=== PATIENT | male | born 1935 | race Caucasian/White ===

== ENCOUNTER 2016-12-18 10:22 | Emergency (ER) | payer MEDICARE, OTHER ==
[2014-02-24 06:30] VITALS: BMI 26.6
[~2016-12-18 10:22] MED LIST: BAYER CHEWABLE81 MG PO; CORDARONE200 MG PO; DEPAKOTE250 MG PO; LIPITOR80 MG PO; NITROQUICK0.4 MG SL; REMERON30 MG/UDTA PO
[2016-12-18 11:16] LABS: BASOPHILS 0.3 % (0.0-2.0); EOSINOPHILS 1.6 % (0-7); HEMATOCRIT 40.9 % (42.0-54.0); HEMOGLOBIN 13.5 g/dL (13.5-17.5); IMMATURE GRANULOCYTES 0.3 % (0-5); LYMPHOCYTES 27.4 % (15-50); MCH 30.4 pg (26.0-34.0); MCV 92.1 fL (80.0-100.0); MEAN PLATELET VOLUME 11.3 fL (7.4-10.4); MONOCYTES 6.8 % (2-11); NEUTROPHILS 63.6 % (40-80); PLATELET COUNT 247 10x3/uL (130-400); RBC 4.44 10x6/uL (4.20-6.10); RDW 14.3 % (11.5-14.5); WBC 11.6 10x3/uL (4.8-10.8)
== END 2016-12-18 13:48 | disposition home or self-care (01) ==
LOC: D.ER 10:22
PROVIDERS: Emergency Medicine
DX: S00.83XA Contusion of other part of head, initial encounter (principal); W19.XXXA Unspecified fall, initial encounter; Y93.89 Activity, other specified; Y92.89 Other specified places as the place of occurrence of the external cause; K59.00 Constipation, unspecified; S37.009A Unspecified injury of unspecified kidney, initial encounter; F31.9 Bipolar disorder, unspecified; M94.0 Chondrocostal junction syndrome [Tietze]; Z95.1 Presence of aortocoronary bypass graft; I10 Essential (primary) hypertension

== ENCOUNTER 2017-03-09 06:53 | Emergency (ER) | payer MEDICARE, OTHER ==
[2014-02-24 06:30] VITALS: BMI 26.6
== END 2017-03-09 08:54 | disposition home or self-care (01) ==
LOC: D.ER 06:53
DX: S16.1XXA Strain of muscle, fascia and tendon at neck level, initial encounter (principal); V59.9XXA Occupant (driver) (passenger) of pick-up truck or van injured in unspecified traffic accident, initial encounter; Y93.89 Activity, other specified; Y92.410 Unspecified street and highway as the place of occurrence of the external cause; F31.89 Other bipolar disorder

== ENCOUNTER 2017-03-15 12:59 | Emergency (ER) | payer MEDICARE, OTHER ==
[2014-02-24 06:30] VITALS: BMI 26.6
== END 2017-03-15 14:18 | disposition home or self-care (01) ==
LOC: D.ER 12:59
DX: S16.1XXA Strain of muscle, fascia and tendon at neck level, initial encounter (principal); V43.92XA Unspecified car occupant injured in collision with other type car in traffic accident, initial encounter; S60.212A Contusion of left wrist, initial encounter; S60.211A Contusion of right wrist, initial encounter; F17.200 Nicotine dependence, unspecified, uncomplicated

== ENCOUNTER 2017-04-08 10:09 | Emergency (ER) | payer MEDICARE, OTHER ==
[2014-02-24 06:30] VITALS: BMI 26.6
[2017-04-08 10:43] LABS: APPEARANCE CLEAR (CLEAR); BASOPHILS 0.6 % (0-2); BILIRUBIN NEGATIVE (NEGATIVE); COLOR YELLOW (YELLOW); EOSINOPHILS 3.4 % (0-7); GLUCOSE NEGATIVE (NEGATIVE); HEMATOCRIT 41.1 % (42.0-54.0); HEMOGLOBIN 13.3 g/dL (13.5-17.5); IMMATURE GRANULOCYTES 0.2 % (0-5); KETONE NEGATIVE (NEGATIVE); LEUKOCYTE ESTERASE NEGATIVE (NEGATIVE); LYMPHOCYTES 26.5 % (15-50); MCHC 32.4 g/dL (31.0-37.0); MCV 92.8 fL (80.0-100.0); MEAN PLATELET VOLUME 11.4 fL (7.4-10.4); MONOCYTES 7.3 % (2-11); NITRITE NEGATIVE (NEGATIVE); PLATELET COUNT 226 10x3/uL (130-400); PROTEIN NEGATIVE (NEGATIVE); RBC 4.43 10x6/uL (4.20-6.10); SPECIFIC GRAVITY 1.015 (1.005-1.020); UROBILINOGEN NORMAL (NORMAL); WBC 6.4 10x3/uL (4.8-10.8)
[2017-04-08 10:57] LABS: ALBUMIN 3.3 g/dL (3.4-5.0); ANION GAP 10.6 mmol/L (8-16); BILIRUBIN - TOTAL 0.41 mg/dL (0.2-1.3); CALCIUM 8.5 mg/dL (8.5-10.1); CREATININE - SERUM 1.4 mg/dL (0.6-1.3); POTASSIUM - SERUM 3.6 mmol/L (3.5-5.1); PROTEIN - SERUM 6.7 g/dL (6.4-8.2)
[2017-04-08 12:10] LABS: MAGNESIUM - SERUM 2.3 mg/dL (1.8-2.4); TROPONIN-I 0.017 ng/mL (0.000-0.060)
[2017-04-08 12:17] LABS: INR 0.94 (0.85-1.17); PROTIME 12.4 SECONDS (11.6-15.0)
== END 2017-04-08 15:01 | disposition home or self-care (01) ==
LOC: D.ER 10:09
PROVIDERS: Emergency Medicine
DX: M54.2 Cervicalgia (principal); R53.1 Weakness; N17.9 Acute kidney failure, unspecified; F31.89 Other bipolar disorder; I44.30 Unspecified atrioventricular block

== ENCOUNTER 2017-11-13 18:03 | Emergency (ER) | payer MEDICARE, OTHER ==
[2014-02-24 06:30] VITALS: BMI 26.6
== END 2017-11-13 19:39 | disposition home or self-care (01) ==
LOC: D.ER 18:03
DX: S40.212A Abrasion of left shoulder, initial encounter (principal); V43.52XA Car driver injured in collision with other type car in traffic accident, initial encounter; Y93.89 Activity, other specified; Y92.410 Unspecified street and highway as the place of occurrence of the external cause; I44.0 Atrioventricular block, first degree

== ENCOUNTER 2018-04-12 10:25 | Emergency (ER) | payer OTHER ==
[~2018-04-12] VITALS: Ht 175.3 cm; Wt 74.8 kg
[2018-04-12 10:29] VITALS: Ht 175.3 cm; Wt 74.8 kg
[2018-04-12] MEDS ORDERED: ELIQUIS2.5 MG PO (10:33)
[2018-04-12] MEDS ORDERED: METOPROLOL TART25 MG PO (10:34)
[2018-04-12] MEDS ORDERED: DEPAKOTE ER250 MG PO (10:34)
[2018-04-12 10:59] LABS: BASOPHILS 0.3 % (0-2); EOSINOPHILS 1.1 % (0-7); HEMATOCRIT 44.8 % (42.0-54.0); HEMOGLOBIN 15.2 g/dL (13.5-17.5); IMMATURE GRANULOCYTES 0.3 % (0-5); LYMPHOCYTES 26.7 % (15-50); MCH 29.7 pg (26.0-34.0); MCHC 33.9 g/dL (31.0-37.0); MCV 87.7 fL (80.0-100.0); MEAN PLATELET VOLUME 11.3 fL (7.4-10.4); MONOCYTES 8.9 % (2-11); NEUTROPHILS 62.7 % (40-80); PLATELET COUNT 204 10x3/uL (130-400); RBC 5.11 10x6/uL (4.20-6.10); WBC 11.8 10x3/uL (4.8-10.8)
[2018-04-12 11:16] LABS: ALBUMIN 3.5 g/dL (3.4-5.0); ALKALINE PHOSPHATASE 83 U/L (46-116); ALT (SGPT) 28 U/L (10-68); BILIRUBIN - TOTAL 0.63 mg/dL (0.2-1.3); CALC OSMOLALITY 283 mosm/kg (275-300); CALCIUM 8.9 mg/dL (8.5-10.1); CARBON DIOXIDE 25.1 mmol/L (21.0-32.0); CHLORIDE - SERUM 104 mmol/L (98-107); CREATININE - SERUM 1.6 mg/dL (0.6-1.3); GLUCOSE 106 mg/dL (74-106); POTASSIUM - SERUM 4.4 mmol/L (3.5-5.1); PROTEIN - SERUM 7.2 g/dL (6.4-8.2); SODIUM 138 mmol/L (136-145); UREA NITROGEN 35 mg/dL (7-18); eGFR NON AFRICAN AMERICAN 44 mL/min (90-120)
[2018-04-12 11:26] LABS: CKMB 2.3 U/L (0.0-3.6); CREATINE KINASE 59 UL (21-232); PRO BNP 3573 pg/mL (0-450)
[2018-04-12 11:28] LABS: TROPONIN-I < 0.017 ng/mL (0.000-0.060)
[2018-04-12 12:19] LABS: APPEARANCE CLEAR (CLEAR); BILIRUBIN NEGATIVE (NEGATIVE); COLOR DK YELLOW (YELLOW); GLUCOSE NEGATIVE (NEGATIVE); KETONE NEGATIVE (NEGATIVE); NITRITE NEGATIVE (NEGATIVE); PROTEIN NEGATIVE (NEGATIVE); UROBILINOGEN NORMAL (NORMAL)
[2018-04-12 12:22] LABS: UDS - AMPHET NEGATIVE QUAL (NEGATIVE); UDS - BARB NEGATIVE QUAL (NEGATIVE); UDS - BENZO NEGATIVE QUAL (NEGATIVE); UDS - COCAINE NEGATIVE QUAL (NEGATIVE); UDS - OPIATE NEGATIVE QUAL (NEGATIVE); UDS - PCP NEGATIVE QUAL (NEGATIVE); UDS - THC NEGATIVE QUAL (NEGATIVE)
[2018-04-12 20:34] VITALS: BP 134/72
== END 2018-04-12 20:35 | disposition other institution (70) ==
LOC: D.ER 10:25
PROVIDERS: Family Medicine
DX: I50.9 Heart failure, unspecified (principal); F31.9 Bipolar disorder, unspecified; N28.9 Disorder of kidney and ureter, unspecified; J44.9 Chronic obstructive pulmonary disease, unspecified; F17.200 Nicotine dependence, unspecified, uncomplicated

== ENCOUNTER 2019-07-10 15:17 | Inpatient (IN) | payer MEDICARE ==
[~2019-07-10] VITALS: Ht 175.3 cm; Wt 84.4 kg
--- NOTE | ~2019-07-10 | HEMODYNAMI ---
PATIENT:XIN WADE MEDICAL RECORD: [id number] : 35 [id number] ADMISSION DATE: 07/10/19 Generatedon:07/12/201910:06 Patient name: XIN WADE Patient #: [id number] SSN: [id number] : 1935 Date of study: 07/12/2019 Page: Of Hemodynamic Procedure Report Patient Data Patient Demographics Procedure consent was obtained First Name: XIN Gender: Male Last Name: MAURO : 1935 [facility] Initial: E Age: 84 year(s) Patient #: [id number] Race: SSN: [id number] Additional ID: [id number] Contact details Address: [address] [place] [address] State: [place] City: [place] Zip code: [address] Past Medical History Allergies: No known allergies Admission Admission Data Admission Date: 07/10/2019 Admission Time: 19:08 Room #: [facility] Insurance Payor: Medicare [facility] #: [id number] Height (in.): 68.9 BSA: 2.02 (m2) Height (cm.): 175 BMI: 28.08 (kg/m2) Weight (lbs.): 189.6 Weight (kg.): 86 Lab Results Lab Result Date: 07/12/2019 Lab Result Time: 0:00 Biochemistry Name Units Result Min Max BUN mg/dl 41 --(----)-* 7 18 Creatinine mg/dl 1.5 --(----)-* 0.6 1.3 eGFR ml/min 47 *-(----)-- 90 120 NONAFRICAN CBC Name Units Result Min Max Hematocrit % 35.6 *-(----)-- 42 54 Hemoglobin g/dl 10.9 *-(----)-- 13.5 17.5 Procedure Procedure Types Cath Procedure Diagnostic Procedure LHC LHC w/Coronaries w/Grafts Sedation Charges Moderate Sedation up to 15 minutes PCI Procedure Coronary Stent Coronary Stent Initial PTCA PTCA Initial Procedure Description Procedure Date Procedure Date: 07/12/2019 Procedure Start Time: 9:28 Procedure End Time: 10:03 Procedure Staff Name Function Israel Farley MD Performing Physician Ruby Deal RT Monitor Cecille Jewell RT Monitor Spike Maynard RT Scrub Maryjo Jones RT Scrub Markos Min RN Nurse Benjamin Pugh RN Nurse Procedure Data Cath Procedure Fluoroscopy Diagnostic fluoroscopy Total fluoroscopy Time: 6.4 time: 6.4 min min Diagnostic fluoroscopy Total fluoroscopy dose: dose: 1135 mGy 1135 mGy Contrast Material Contrast Material Type Amount (ml) Isovue 300 139 Entry Location Entry Primary Successful Side Size Upsize Upsize Entry Closure Succes sful Closure Location (Fr) 1 (Fr) 2 (Fr) Remarks Device Remarks Femoral Right 5 Fr 6 Fr Exoseal artery Short Estimated blood loss: 10 ml Diagnostic catheters Device Type Used For End Catheter Placement MULTIPACK JL 4.0 5Fr Procedure catheter DIAGNOSTIC AR MOD 5Fr Procedure Catheter ([id number]) MULTIPACK Pigtail 5 Fr Procedure catheter DIAGNOSTIC IM 5Fr Procedure catheter ([id number]) Procedure Complications No complications Procedure Medications Medication Administration Route Dosage Oxygen NC 2 l/min Lidocaine 2% added to field 20 Heparin Flush Bag added to field 2 bags (1000units/500ml NS) 0.9% NaCl I.V. 100 ml/hr Fentanyl I.V. 50 mcg Versed I.V. 1 mg Heparin Bolus I.V. 8500 units Plavix P.O. 600 mg Hemodynamics Rest BSA: 2.02 (m2) HGB: 10.9 (g/dl) O2 Consumption: Estimated: 221.53 (ml/min) O2 Co nsumption indexed: Estimated:109.67 (ml/min/m) Heart Rate: 59 (bpm) Pressure Samples Time Site Value (mmHg) Purpose Heart Use Rate(bpm) 9:38 LV 90/4,6 Snapshot 58 Gradients Valve Time Site Site Mean SEP/DFP Peak To Heart Use 1 2 (mmHg) (sec/min) Peak Rate (mmHg) (bpm) Aortic 9:39 LV AO 70 Snapshots Pre Cath Intra NCS Post Cath Vital Signs Time Heart Resp SPO2 etCO2 NIBP (mmHg) Rhythm Pain Sedation Rate (ipm) (%) (mmHg) Status Level (bpm) 8:59:10 64 16 99 0 130/75(106) NSR 0 (11) 10(A) , No pain 9:04:07 71 16 100 0 113/64(98) NSR 0 (11) 10(A) , No pain 9:09:14 64 16 98 32.2 110/76(85) NSR 0 (11) 10(A) , No pain 9:13:28 66 16 98 0 110/59(92) NSR 0 (11) 10(A) , No pain 9:17:40 59 16 92 29.2 104/66(89) NSR 0 (11) 10(A) , No pain 9:21:48 73 16 95 14.2 107/71(93) NSR 0 (11) 10(A) , No pain 9:25:56 65 17 99 27.7 113/62(82) NSR 0 (11) 10(A) , No pain 9:30:10 64 12 100 38.2 108/62(93) NSR 0 (11) 10(A) , No pain 9:34:22 79 11 92 0 107/62(98) NSR 0 (11) 10(A) , No pain 9:38:36 75 18 94 23.9 109/55(91) NSR 0 (11) 10(A) , No pain 9:42:38 74 13 95 35.9 105/72(96) NSR 0 (11) 10(A) , No pain 9:46:47 55 18 97 36.7 103/62(86) NSR 0 (11) 10(A) , No pain 9:50:59 76 18 97 29.2 103/56(84) NSR 0 (11) 10(A) , No pain 9:55:07 68 13 99 38.2 106/69(92) NSR 0 (11) 10(A) , No pain 9:59:15 66 11 99 23.2 118/70(86) NSR 0 (11) 10(A) , No pain 10:04:20 53 13 99 41.2 111/62(90) NSR 0 (11) 10(A) , No pain Medications Time Medication Route Dose Verified Delivered Reason Notes Effectiveness by by 9:03:09 Oxygen NC 2 Israel Sandhu Per physician l/min Miguelito Oconnor RN 9:03:21 Lidocaine 2% added 20ml Israel Edson for local to vial Miguelito Oconnor RN anesthetic field 9:03:33 Heparin Flush added 2 Israel Edson used for Bag to bags Miguelito Oconnor pilling machine operator (1000units/500ml field NS) 9:03:46 0.9% NaCl I.V. 100 Israel Edson Per physician ml/hr Miguelito Oconnor RN 9:27:53 Fentanyl I.V. 50 Israel Edson for sedation mcg Miguelito Oconnor RN 9:28:02 Versed I.V. 1 mg Israel Edson for sedation Miguelito Oconnor RN 9:47:35 Heparin Bolus I.V. 8,500 Israel Benjamin for units Miguelito Pugh anticoagulation RN 9:58:39 Plavix P.O. 600 Israel Benjamin for mg Miguelito Pugh antiplatelet RN therapy Procedure Log Time Note 8:43:08 Informed consent obtained and on chart 8:43:40 Procedure Status Urgent Heart Cath (IP). 8:43:41 Time tracking: Regular hours (M-F 7:00 - 5:00) 8:43:45 Plan of Care:Hemodynamics will remain stable., Cardiac rhythm will remain stable., Comfort level will be maintained., Respiratory function will remain adequate., Patient/ family verbilizes understanding of procedure., Procedure tolerated without complication., Recovers from procedure without complications.. 8:43:46 Spike Maynard RT(R) sent for patient. Start room use. 8:44:23 H&P Date Dictated: 07/12/2019 Within 30 days and on chart.. 8:44:32 Patient allergic to No known allergies 8:44:59 Lab Result : BUN 41 mg/dl 8:45:00 Lab Result : Creatinine 1.5 mg/dl 8:45:00 Lab Result : eGFR NONAFRICAN 47 ml/min 8:45:00 Lab Result : Hemoglobin 10.9 g/dl 8:45:00 Lab Result : Hematocrit 35.6 % 8:46:32 Risk of Mortality: .9 8:46:36 Risk of blood transfusion: 4.7 8:46:39 Risk of LUBNA: 4.5 8:49:18 Patient Weight : 189.6 lbs 8:49:22 Patient Height : 68.9 inches 8:49:32 Insurance Payor : Medicare 8:52:13 Patient received from Med II to CCL 1 Alert and oriented. Tansferred to table in Supine position. 8:52:14 Warm blankets applied, and davis hugger turned on for patient comfort. 8:52:15 Correct patient and procedure confirmed by team. 8:52:16 ECG and BP/O2 sat monitors applied to patient. 8:52:24 Pre-procedure instructions explained to patient. 8:52:24 Pre-op teaching completed and patient verbalized understanding. 8:52:29 Family unavailable. 8:52:32 Patient NPO since Midnight. 8:52:41 Is the patient allergic to Iodine/contrast media? No. 8:52:43 Was the patient premedicated? N/A 8:52:45 Is patient on blood thinner?No 8:52:47 Patient diabetic? No. 8:52:50 If diabetic: On Metformin? N/A 8:53:03 Previous problem with sedation/anesthesia? No ? 8:53:04 Snore? No 8:53:06 Sleep apnea? No 8:53:09 Deviated septum? No 8:53:11 Opens mouth fully? Yes 8:53:12 Sticks out tongue? Yes 8:53:15 Airway obstruction? No ? 8:53:17 Dentures? No ? 8:53:24 Pre procedure: right dorsailis pedis pulse 2+ Normal; easily identifiable; not easily obliterated 8:58:07 Vital chart was started 8:58:10 Baseline sample Acquired. 8:58:15 Rhythm: atrial fibrillation 8:58:17 Full Disclosure recording started 8:58:28 Patient pain scale 0/10 ?. 8:58:35 IV patent on arrival in left hand with 0.9% NaCl at KVO. 8:58:38 Lab results completed and on chart. 8:58:58 Stress Test: no; N/A ? 8:59:04 Right groin area was prepped with chlora-prep and draped in sterile fashion 8:59:05 Alarms reviewed by R. N. 8:59:05 Sharps counted by scrub and verified by R.N. 8:59:13 ACC Patient presents with Stable Angina CCS Anginal Class 3--Marked limitation of physical activity, angina occurs with ordinary activity.. 8:59:19 Use device set Femoral Dx 8:59:20 ACIST Syringe (51853) opened to sterile field. 8:59:21 Bag Decanter (2002S) opened to sterile field. 8:59:22 ACIST Hand Control (14579) opened to sterile field. 8:59:22 ACIST Manifold (46131) opened to sterile field. 8:59:23 Tegaderm 4 x 4 (1626W) opened to sterile field. 8:59:25 Medline Cath Pack ([id number]) opened to sterile field. 8:59:25 DIAGNOSTIC Multipack 5Fr catheter set (BP5225) opened to sterile field. 8:59:26 SHEATH 5FR Crane (MNG619) opened to sterile field. 8:59:27 EMERALD Guide Wire (650-014) opened to sterile field. 9:03:09 Oxygen 2 l/min NC was administered by Edson Oconnor RN; Per physician; Verbal order read back and verified. 9:03:21 Lidocaine 2% 20ml vial added to field was administered by Edson Oconnor RN; for local anesthetic; Verbal order read back and verified. 9:03:33 Heparin Flush Bag (1000units/500ml NS) 2 bags added to field was administered by Edson Oconnor RN; used for procedure; Verbal order read back and verified. 9:03:46 0.9% NaCl 100 ml/hr I.V. was administered by Edson Oconnor RN; Per physician; Verbal order read back and verified. 9:25:59 --------ALL STOP TIME OUT------ 9:26:01 Final Timeout: patient, procedure, and site verified with staff and physician. All members of the team are in agreement. 9:26:04 Right groin site verified by team. 9:26:09 Fire Safety Assessment: A--An alcohol-based skin anteseptic being used preoperatively., C--Open oxygen or nitrous oxide is being used., D--An ESU, laser, or fiber-optic light is being used. 9:27:16 Physical assessment completed. ASA score P 2 - A patient with mild systemic disease as per Israel Farley MD. 9:27:25 2) 60-89 Mildly reduced kidney function, and other findings (as for stage 1) point to kidney disease. 9:27:29 Maximum allowable contrast dose (3.7 X eGFR X 0.75)125 ml. 9:27:34 Sedation plan: IV Moderate Sedation Medication:Versed, Fentanyl 9:27:42 Procedure started. 9:27:53 Fentanyl 50 mcg I.V. was administered by Edson Oconnor RN; for sedation; Verbal order read back and verified. 9:28:02 Versed 1 mg I.V. was administered by Edson Oconnor RN; for sedation; Verbal order read back and verified. 9:28:22 Local anesthetic to right femoral artery with Lidocaine 2% by Israel Farley MD.INITIAL ACCESS ONLY 9:30:50 A 5 Fr sheath was inserted into the Right Femoral artery 9:31:18 A MULTIPACK JL 4.0 5Fr catheter was advanced over the wire and used for Procedure. 9:32:12 LCA angiography performed. 9:33:47 Catheter exchanged over wire. 9:34:39 A DIAGNOSTIC AR MOD 5Fr Catheter (347308U) was advanced over the wire and used for Procedure. 9:35:00 RCA angiography performed. 9:37:30 SVG to Circ occluded. 9:37:32 Catheter exchanged over wire. 9:37:40 A MULTIPACK Pigtail 5 Fr catheter was advanced over the wire and used for Procedure. 9:37:49 LV gram done using REAL 9:37:52 Injector settings: Ml/sec: 10, Volume: 20, 9:38:24 LV hemodynamics recorded. 9:39:10 EF : 30 % 9:39:36 Catheter exchanged over wire. 9:39:41 A DIAGNOSTIC IM 5Fr catheter ([id number]) was advanced over the wire and used for Procedure. 9:41:30 JORGE angiography performed. 9:42:11 Catheter exchanged over wire. 9:42:43 Proceeding to intervention. 9:43:42 INFLATOR Merit BasixCompak (PV3060) opened to sterile field. 9:43:43 SHEATH 6FR Crane (IFG986) opened to sterile field. 9:43:44 TUBING High Pressure Extension Tubing (Miguelito) ([id number]) opened to sterile field. 9:43:46 BMW 300cm Straight [place]ingo 2 wire (8339476) opened to sterile field. 9:45:03 Sheath upsized to a 6 Fr Short. 9:45:05 GUIDE 6FR XBLAD 3.5 catheter ([id number]) opened to sterile field. 9:45:08 6 Fr XBLAD 3.5 guide catheter was inserted over the wire 9:45:45 BMW 300 wire advanced. 9:47:35 Heparin Bolus 8,500 units I.V. was administered by Benjamin Pugh RN; for anticoagulation; Verbal order read back and verified. 9:47:36 Wire advanced across lesion. 9:47:46 Pre PCI Site: Unga mCirc has 90% stenosis. 9:49:03 Inflate balloon Inflation number: 1 A EMERGE OTW 2.5 x 15 balloon ([id number]) was prepped and advanced across the Mid CX , then inflated to 16 SUSAN for 0:00 (min:sec) . 9:49:50 Balloon removed over the wire. 9:50:21 Pre PCI Site: Unga LMCA has 90% stenosis. 9:52:31 Place stent Inflation Number: 1 A COBRA RX 3.0 X 12 Stent was prepped and advanced across the LMCA . The stent was deployed at 16 SUSAN for 0:00 (min:sec) . 9:53:08 Stent catheter was removed intact over wire. 9:53:10 Wire removed. 9:53:12 Guide catheter removed. 9:53:42 Post PCI Site: Unga LMCA has 0% stenosis. 9:53:51 Post PCI Site: Unga mCirc has 0% stenosis. 9:54:03 EXOSEAL 6Fr (EX600) opened to sterile field. 9:55:03 Sheath removed intact; hemostasis achieved with Exoseal to the Right Femoral artery. 9:55:11 Procedure ended.(Physican Out) 9:55:31 Dose Area Product 62830 mGy/cm. 9:55:40 Contrast amount:Isovue 300 139ml. 9:55:47 Maximum allowable dose exceeded? Yes. 9:55:49 Sharps counted by scrub and verified by R.N. 9:56:22 Post right femoral artery:stable, soft, clean and dry 9:56:30 Fluoroscopy time 06.40 minutes. 9:56:33 Flurop Dose total: 1135 9:56:33 Fluoroscopy dose: 1135 mGy 9:56:40 Post Procedure Pulses reassessed and unchanged 9:56:45 Post procedure: right dorsailis pedis pulse 2+ Normal; easily identifiable; not easily obliterated. 9:56:49 Post-procedure physical assessment completed. ASA score P 2 - A patient with mild systemic disease as per Israel Farley MD. 9:56:53 Post procedure rhythm: unchanged. 9:56:57 Estimated blood loss: 10 ml 9:56:59 Post procedure instruction explained to patient.Patient verbalizes understanding. 9:57:00 Patient needs reinforcement of post procedure teaching. 9:58:12 Procedure type changed to Cath procedure, Diagnostic procedure, LHC, LHC w/Coronaries w/Grafts, Sedation Charges, Moderate Sedation up to 15 minutes, PCI procedure, Coronary Stent, Coronary Stent Initial, PTCA, PTCA Initial 9:58:39 Plavix 600 mg P.O. was administered by Benjamin Pugh RN; for antiplatelet therapy; Verbal order read back and verified. 10:02:32 ACT drawn and resulted at 361 seconds. (normal therapeutic range 180-240 seconds). 10:02:37 Procedure and supply charges have been captured, reviewed, submitted and are correct. 10:02:44 Procedure Complication : No complications 10:02:46 Vital chart was stopped 10:02:49 [facility] Findings: MVD- PCI performed (see procedure note) 10:02:55 Operative report dictated upon procedure completion. 10:02:56 See physician's report for complete and final results. 10:02:59 Report given to [place] [facility]. 10:03:03 Patient transfered to [place] [facility] with Bed. 10:03:06 Procedure ended. 10:03:06 Full Disclosure recording stopped 10:03:17 ACC-PCI Only Patient was given prescriptions, or instructed by Israel Farley MD to start/continue the following medications upon discharge: Plavix 10:03:19 End room use (Document Last) Intervention Summary Intervention Notes Time ActionType Lesion and Equipment Action# Pressure Duration Attributes Used 9:49:03 Inflate Mid CX EMERGE OTW 1 16 00:00 balloon 2.5 x 15 balloon ([id number]) 9:52:31 Place stent LMCA COBRA RX 3.0 1 16 00:00 X 12 Stent Device Usage Item Name Manufacture Quantity Catalog Number [facility] Minimal Lot# / Charge Number Stock Stock Serial# Code ACIST Syringe Acist 1 52734 390135 775508 510100 20 (62804) Medical Systems Inc Bag Decanter Microtek 1 2001S 407878 41499 460866 5 (2001S) Medical Inc. ACIST Hand Acist 1 39657 513606 974566 306153 5 Control Medical (72254) Systems Inc ACIST Manifold Acist 1 89493 932255 178227 024462 5 (38325) Medical Systems Inc Tegaderm 4 x 4 3M 1 1626W 872735 044226 676604 5 (1626W) Medline Cath Medline 1 [id number] 485829 54962 364003 5 Pack ([id number]) DIAGNOSTIC Cardinal 1 EG5781 137392 85870 500690 30 Multipack 5Fr Health catheter set (PS9932) SHEATH 5FR Terumo 1 NUB385 736153 474443 533861 5 Crane (AHD160) EMERALD Guide Cardinal 1 502-455 544745 822378 935522 5 Wire (502-455) Health MULTIPACK JL Cardinal 1 157936 5 4.0 5Fr Health catheter DIAGNOSTIC AR Cardinal 1 [id number] 102067 380871 367815 15 MOD 5Fr Health Catheter (825855A) MULTIPACK Cardinal 1 345315 5 Pigtail 5 Fr Health catheter DIAGNOSTIC IM Cardinal 1 228706P 928790 144080 970846 5 5Fr catheter Health (698907R) INFLATOR Merit Merit 1 EY3991 575997 779779 046663 15 BasixCompak Medical (SJ0264) SHEATH 6FR Terumo 1 IVL909 057124 881641 482308 40 Crane (YLG299) TUBING High Merit 1 [id number] 457385 13809 006862 10 Pressure Medical Extension Tubing (Farley) (ND0334U) BMW 300cm Emmanuel 1 0143284 640696 119433 687314 5 Straight Vascular Wingo 2 wire (3970414) EMERGE OTW 2.5 [place] 1 [id number] 245001 018227 408780 5 [id number] x 15 balloon Scientific ([id number]) COBRA RX 3.0 X Celonova 1 795633 613024183 188685 7 7 [id number] 12 stent Biosciences () EXOSEAL 6Fr Cardinal 1 EX600 857734 834586 464740 10 (EX600) Health GUIDE 6FR Cardinal 1 13271281 197902 261133 740456 10 XBLAD 3.5 Health catheter (29560950) Signature Audit [place] Stage Time Signature Unsigned Intra-Procedure 07/12/2019 Ruby Deal 10:05:46 AM RT(R) Intra-Procedure 07/12/2019 Benjamin 10:06:19 AM Keaton HENDRICKS Intra-Procedure 07/12/2019 Israel Farley MD 10:06:[address] [address]
[~2019-07-10 15:17] MED LIST changes: +DEPAKOTE ER250 MG PO; +ELIQUIS2.5 MG PO; +METOPROLOL TART25 MG PO
[2019-07-10 15:43] LABS: BASOPHILS 0.2 % (0-2); EOSINOPHILS 4.2 % (0-7); HEMATOCRIT 37.6 % (42.0-54.0); HEMOGLOBIN 11.6 g/dL (13.5-17.5); IMMATURE GRANULOCYTES 0.2 % (0-5); LYMPHOCYTES 35.3 % (15-50); MCH 29.4 pg (26.0-34.0); MCHC 30.9 g/dL (31.0-37.0); MCV 95.2 fL (80.0-100.0); MEAN PLATELET VOLUME 11.2 fL (7.4-10.4); MONOCYTES 10.2 % (2-11); NEUTROPHILS 49.9 % (40-80); PLATELET COUNT 182 10x3/uL (130-400); RBC 3.95 10x6/uL (4.20-6.10); RDW 13.5 % (11.5-14.5); WBC 9.9 10x3/uL (4.8-10.8)
[2019-07-10 15:55] LABS: APTT 29.1 SECONDS (22.8-39.4); INR 1.15 (0.85-1.17); PROTIME 14.2 SECONDS (11.6-15.0)
[2019-07-10 15:57] LABS: CALC OSMOLALITY 295 mosm/kg (275-300); CALCIUM 8.4 mg/dL (8.5-10.1); CARBON DIOXIDE 29.3 mmol/L (21.0-32.0); CHLORIDE - SERUM 110 mmol/L (98-107); CREATININE - SERUM 1.7 mg/dL (0.6-1.3); GLUCOSE 104 mg/dL (74-106); POTASSIUM - SERUM 5.3 mmol/L (3.5-5.1); SODIUM 144 mmol/L (136-145); UREA NITROGEN 38 mg/dL (7-18); eGFR NON AFRICAN AMERICAN 41 mL/min (90-120)
[2019-07-10 16:01] VITALS: BP 124/75
[2019-07-10 16:13] LABS: ALBUMIN 3.2 g/dL (3.4-5.0); ALKALINE PHOSPHATASE 72 U/L (46-116); ALT (SGPT) 19 U/L (10-68); BILIRUBIN - TOTAL 0.25 mg/dL (0.2-1.3); CKMB 1.2 U/L (0.0-3.6); CREATINE KINASE 66 UL (21-232); MAGNESIUM - SERUM 2.3 mg/dL (1.8-2.4); PROTEIN - SERUM 6.4 g/dL (6.4-8.2); TROPONIN-I 0.031 ng/mL (0.000-0.060)
[2019-07-10 16:30] VITALS: BP 124/71
[2019-07-10 17:01] VITALS: BP 139/101
--- NOTE | 2019-07-10 17:26 | NUR ---
UP TO SIDE OF BED TO VOID. MEDS GIVEN PER ORDERS.
--- NOTE | 2019-07-10 17:36 | NUR ---
[facility] CALLED TO CHECK ON PT, STATES THEY WILL PAY FOR TRANSFER BACK TO [facility]. STATES THEY DO NOT HAVE TRANSPORTATION ON THE WEEKENDS.
[2019-07-10 17:44] VITALS: BP 109/61
--- NOTE | 2019-07-10 19:32 | NUR ---
PT RECEIVED VIA WHEELCHAIR FROM ER, PT IS A&O, UP WITH ASSIST, IV-18G.-LAC-SL, CALL [facility]-TO GET LIST OF MEDS FAXED TO ME, SPOKE WITH BETH, PT ASKING FOR A SANDWICH AND DRINK,(PROVIDED), DENIES ANY OTHER NEEDS AT THIS TIME, BED IS LOW, SRX2, CALL LIGHT IN REACH, WILL CONTINUE PLAN OF CARE
[2019-07-10] MEDS ORDERED: LIPITOR80 MG PO (22:45)
[2019-07-10] MEDS ORDERED: FLOMAX0.4 MG PO (22:46)
[2019-07-10] MEDS ORDERED: LISINOPRIL5 MG PO (22:47)
[2019-07-10] MEDS ORDERED: TYLENOL ARTHRI650 MG PO (22:51)
[2019-07-10] MEDS ORDERED: LASIX40 MG PO (22:52)
[2019-07-10] MEDS ORDERED: MELATONIN 3 MG1 TAB PO (22:52)
[2019-07-10] MEDS ORDERED: REMERON30 MG (22:56)
[2019-07-10 22:58] LABS: CKMB 1.6 U/L (0.0-3.6); CREATINE KINASE 59 UL (21-232); TROPONIN-I 0.024 ng/mL (0.000-0.060)
[2019-07-11] VITALS (7 sets, daily range): BP systolic 89–123; BP diastolic 49–81
[2019-07-11 01:36] LABS: CKMB 1.1 U/L (0.0-3.6); CREATINE KINASE 57 UL (21-232); TROPONIN-I < 0.017 ng/mL (0.000-0.060)
[2019-07-11 05:54] LABS: CKMB 1.6 U/L (0.0-3.6); CREATINE KINASE 71 UL (21-232); TROPONIN-I 0.031 ng/mL (0.000-0.060)
--- NOTE | 2019-07-11 07:03 | NUR ---
PT CALL LIGHT ON, WENT TO ANSWER CALL LIGHT, PT NEEDED ASSISTANCE TO GO TO THE BATHROOM. HELPED PT TO BATHROOM AND BACK TO BED, SCDS ON BILAT, CALL LIGHT IN REACH,BEDSIDE RAILS X2, NAD NOTED, WILL CONTINUE TO MONITOR.
[2019-07-11 07:38] LABS: BASOPHILS 0.2 % (0-2); EOSINOPHILS 2.7 % (0-7); HEMATOCRIT 35.6 % (42.0-54.0); HEMOGLOBIN 10.9 g/dL (13.5-17.5); IMMATURE GRANULOCYTES 0.2 % (0-5); LYMPHOCYTES 25.1 % (15-50); MCH 29.4 pg (26.0-34.0); MCHC 30.6 g/dL (31.0-37.0); MEAN PLATELET VOLUME 12.1 fL (7.4-10.4); MONOCYTES 9.6 % (2-11); NEUTROPHILS 62.2 % (40-80); PLATELET COUNT 191 10x3/uL (130-400); RBC 3.71 10x6/uL (4.20-6.10); RDW 13.7 % (11.5-14.5)
[2019-07-11 07:44] LABS: WBC 12.5 10x3/uL (4.8-10.8)
[2019-07-11 07:50] LABS: ANION GAP 15.3 mmol/L (8-16); CALCIUM 8.3 mg/dL (8.5-10.1); CHOL - HDL RATIO 3.1 ratio (2.3-4.9); CREATININE - SERUM 1.5 mg/dL (0.6-1.3); LDL-HDL RATIO 1.6 ratio (1.5-3.5); POTASSIUM - SERUM 5.3 mmol/L (3.5-5.1)
--- NOTE | 2019-07-11 13:40 | NUR ---
TALKED TO DR. SMITH, AND INFORMED HIM THAT PT KEEPS HAVING 2-3SEC PAUSES. PT IS ASYMPTOMATIC. PER DR. SMITH CONTINUE MONITORING PT.
[2019-07-11] MEDS ORDERED: DEPAKOTE500 MG PO (14:14)
--- NOTE | 2019-07-11 14:28 | NUR ---
PT RESTING COMFORTABLY IN BED, GAVE PROTONIX AND DEPAKOTE ORDERED. PT DENIES ANY NEEDS AT THIS TIME.CALL LIGHT IN REACH, NAD NOTED, WILL CONTINUE TO MONITOR.
[2019-07-11 14:58] LABS: % SATURATION 22 % (15-55); IRON 48 ug/dl (35-150); TOTAL IRON BIND CAPACITY 212 ug/dl (260-445); UNSAT IRON BIND CAPACITY 164 ug/dl (150-375)
--- NOTE | 2019-07-11 16:05 | NUR ---
HELPED PT TO BATHROOM AND BACK TO BED. URINE SAMPLE COLLECTED AND TAKEN TO LAB. PT DENIES ANY OTHER NEEDS AT THIS TIME. CALL LIGHT IN REACH, NAD NOTED, WILL CONTINUE TO MONITOR.
[2019-07-11 16:23] LABS: APPEARANCE CLEAR (CLEAR); BILIRUBIN NEGATIVE (NEGATIVE); COLOR YELLOW (YELLOW); GLUCOSE NEGATIVE (NEGATIVE); KETONE NEGATIVE (NEGATIVE); NITRITE NEGATIVE (NEGATIVE); PROTEIN NEGATIVE (NEGATIVE); SPECIFIC GRAVITY 1.015 (1.005-1.020); UROBILINOGEN NORMAL (NORMAL)
--- NOTE | 2019-07-11 16:34 | NUR ---
BELT BUILDER NOTIFIED NURSE OF LOW BP, REMOVED NITRO PATCH AND WILL RECHECK BP IN 30MIN. PT STATES THAT HE FEELS GOOD DENIES ANY CHEST PAIN OR DISCOMFORTS. CALL LIGHT IN REACH, NAD NOTED,W ILL CONTINUE TO MONITOR.
--- NOTE | 2019-07-11 17:26 | NUR ---
RECHECKED PT BP NOW 103/58.
--- NOTE | 2019-07-11 19:15 | NUR ---
RECEIVED REPORT, WILL ASSUME CARE OF PT, SLEEPING NO DISTRESS NOTICED, BED IS LOW, SRX2, CALL LIGHT IN REACH, WILL CONTINUE PLAN OF CARE
--- NOTE | 2019-07-12 03:52 | NUR ---
I have reviewed this patient and I concur with the Shift Assessment completed by the Licensed Practical Nurse today this shift.
[2019-07-12 04:00] VITALS: BP 100/60
[2019-07-12 05:40] LABS: BASOPHILS 0.3 % (0-2); EOSINOPHILS 4.7 % (0-7); HEMATOCRIT 37.8 % (42.0-54.0); HEMOGLOBIN 11.4 g/dL (13.5-17.5); IMMATURE GRANULOCYTES 0.3 % (0-5); LYMPHOCYTES 30.7 % (15-50); MCH 28.8 pg (26.0-34.0); MCHC 30.2 g/dL (31.0-37.0); MCV 95.5 fL (80.0-100.0); MONOCYTES 10.7 % (2-11); NEUTROPHILS 53.3 % (40-80); PLATELET COUNT 188 10x3/uL (130-400); RBC 3.96 10x6/uL (4.20-6.10); RDW 13.6 % (11.5-14.5)
[2019-07-12 05:48] LABS: WBC 9.3 10x3/uL (4.8-10.8)
[2019-07-12 06:30] LABS: CALCIUM 8.1 mg/dL (8.5-10.1); CARBON DIOXIDE 25.3 mmol/L (21.0-32.0); CREATININE - SERUM 1.6 mg/dL (0.6-1.3); POTASSIUM - SERUM 5.3 mmol/L (3.5-5.1)
--- NOTE | 2019-07-12 07:55 | NUR ---
ALERT AND ORIENTED. TELEMERTY SHOWS AFIB 57.02 AT 2 L/M PER NC. PT IS A DNR. LEFT FA SL PATENT. UP WITH ASSIST. WILL MONITOR SR UP WITH CALL LIGHT IN REACH
[2019-07-12 09:00] VITALS: BP 110/58
--- NOTE | 2019-07-12 10:36 | NUR ---
BACK FROM DISTRIBUTION CENTER MANAGER. SLIGHTLY SEDATED. RIGHT GROIN SOFT WITH DRSG DRY AND INTACT. PPP. V/S STABLE TELEMERTY SHOWS AFIB AT 76. SR UP WITH CALL LIGHT IN REACH
[2019-07-12 11:46] VITALS: BP 121/64
--- NOTE | 2019-07-12 12:10 | NUR ---
I have reviewed this patient and I concur with the Shift Assessment completed by the Licensed Practical Nurse today this shift.
[2019-07-12 14:46] VITALS: Ht 175.3 cm; Wt 84.4 kg
[2019-07-12 16:16] VITALS: BP 113/77
[2019-07-12 20:00] VITALS: BP 108/56
[2019-07-13] VITALS: BP 98/55
--- NOTE | 2019-07-13 00:36 | NUR ---
RESTING WITH EYES CLOSED, RESPERATIONS EVEN, NO S/S DISTRESS NOTED.
[2019-07-13 04:25] VITALS: BP 114/57
[2019-07-13 05:47] LABS: HEMATOCRIT 36.5 % (42.0-54.0); HEMOGLOBIN 11.3 g/dL (13.5-17.5); MCH 29.5 pg (26.0-34.0); MCV 95.3 fL (80.0-100.0); MEAN PLATELET VOLUME 12.1 fL (7.4-10.4); PLATELET COUNT 188 10x3/uL (130-400); RBC 3.83 10x6/uL (4.20-6.10); RDW 13.6 % (11.5-14.5); WBC 9.6 10x3/uL (4.8-10.8)
[2019-07-13 05:49] LABS: ANION GAP 12.1 mmol/L (8-16); CALCIUM 8.3 mg/dL (8.5-10.1); CARBON DIOXIDE 24.5 mmol/L (21.0-32.0); CREATININE - SERUM 1.7 mg/dL (0.6-1.3); POTASSIUM - SERUM 5.6 mmol/L (3.5-5.1)
--- NOTE | 2019-07-13 07:31 | NUR ---
ALERT AND ORIENTED. PT HAVING GREATER THAN 2 SEC PAUSES THROUGH THE NIGHT AND A 3 SEC PAUSE THIS MORNING. I CALLED DR. CARRERO AND REPORTED IT. ORDERS TO HOLD LOPRESSOR RECIEVED. WILL CONTINUE TO MONITOR. PT IS ASYPTOMATIC. SL TO LEFT FA, PATENT. 02 AT 2 L/M PER NC. WILL MONITOR
[2019-07-13 08:00] VITALS: BP 130/83
[2019-07-13 08:41] LABS: EOSINOPHILS 1 % (0-7); LYMPHOCYTES 22 % (15-50); MONOCYTES 12 % (2-11); NEUTROPHILS 65 % (40-80); PLATELET ESTIMATE NORMAL
[2019-07-13 08:42] LABS: ACANTHOCYTES OCC; CRENATED CELLS 2+
[2019-07-13 12:00] VITALS: BP 119/56
[2019-07-13] MEDS ORDERED: PLAVIX75 MG PO (12:06)
--- NOTE | 2019-07-13 12:44 | NUR ---
I have reviewed this patient and I concur with the Shift Assessment completed by the Licensed Practical Nurse today this shift.
--- NOTE | 2019-07-13 12:47 | NUR ---
UP TO BATHROOM. GAIT STEADY. DENIES ANY NEEDS. WILL MONITOR
[2019-07-13] MEDS ORDERED: BAYER CHEWABLE81 MG PO (13:03)
--- NOTE | 2019-07-13 14:27 | MORECARE ---
CASE MANAGEMENT DISCHARGE SUMMARY PATIENT: XIN WADE UNIT: [id number] ADM DATE: 07/10/19 AGE: 84 : 35 SEX: M ROOM/BED: D.2123 AUTHOR: LOLA,DOC PHYSICIAN: REFERRING PHYSICIAN: JULIUS BARDALES MD DATE OF SERVICE: 07/13/19 Discharge Plan Patient Name: XIN WADE Facility: [facility]:[place] : 1935 Planned Disposition: Nursing Facility [facility] Cert Anticipated Discharge Date: 07/13/19 Discharge Date: Expected LOS: 3 Initial Reviewer: [email or web address] Initial Review Date: 07/10/2019 Generated: 07/13/19 3:27 pm Comments DCP- Discharge Planning Updated by [email or web address]: Eb Ruggiero on 07/13/19 1:[address] Patient Name: XIN WADE Encounter No: [id number] : 1935 Primary Insurance: MEDICARE PART A ONLY Anticipated DC Date: 07-13-2019 Planned Disposition: Nursing Facility [facility] Cert External Planned Provider: [facility], LONG TERM CARE MEDICAID BED DCP follow-up note: CM RECEIVED DISCHARGE ORDER, MET WITH PT IN ROOM TO DISCUSS DISCHARGE PLANNING AND NEEDS. PT REPORTS HE HAS LIVED AT THE [facility] FOR OVER ONE YEAR, FEELS SAFE THERE AND WILL RETURN AT DISCHARGE TODAY. PT REPORTS HE CAN RIDE WHEELCHAIR VAN. PT REPORTS HE WILL NEED OXYGEN. PT DENIES FURTHER NEEDS, PT STATES HE HAS NO FAMILY TO NOTIFY OF HIS DISCHARGE. IMPORTANT MESSAGE FROM MEDICARE PROVIDED AND EXPLAINED. CM CALLED YOU OF THE [facility], , YOU CONFIRMED THAT PT IS A LONGTERM CARE RESIDENT AT THE [facility] AND THEY WILL ACCEPT BACK TODAY. RN JOSE CARLISLE FAXED REFERRAL AND DISCHARGE INFORMATION TO THE [facility] VIA [employer] AT [phone], NURSE REPORT TO BE CALLED TO THE [facility] AT [phone]. THE [facility] TO ARRANGE VAN TRANSPORTATION. Eb Ruggiero, CASE MANAGEMENT DCPIA - Discharge Planning Initial Assessment Updated by [id number]: Eb Ruggiero on 07/13/19 2:21 pm * Is the patient Alert and Oriented? Yes * How many steps to enter\exit or inside your home? NONE * PCP DR. MAY * [facility] * Preadmission Environment Nursing Home Detention * Facility Name [facility] * ADLs Independent * Equipment Other * Other Equipment ALL MEDICAL EQUIPMENT PROVIDED BY FACILITY USES WHEELCHAIR AND IS ABLE TO AMBULATE SHORT DISTANCES * List name and contact numbers for known caregivers / representatives who currently or will assist patient after discharge: LIVE JALLOH, FRIEND, * Verbal permission to speak to the caregivers and representatives has been obtained from the patient. N/A * Community resources currently utilized None * Please name any agencies selected above. NONE * Additional services required to return to the preadmission environment? No * Can the patient safely return to the preadmission environment? Yes * Has this patient been hospitalized within the prior 30 days at any hospital? No External Providers External Provider: [facility] [place] Next Contact Date: Service Request Date: Service Type: Resolution: Reviewer: Comments: Coverage Notice Reviewer: [id number] Thang Carlisle Notice Issued Date-Time: 07/10/2019 18:32 Notice Type: Medicare Outpatient Observation Notice Notice Delivered To: Patient Relationship to Patient: Apn Name: Delivery Method: HAND - Hand Delivered Mariangel Days: Prior Verbal Notification: Recipient Understood Notice: Recipient Signature: Med Rec Note Co-signed by Attending: Coverage Notice Comment: Reviewer: [id number] Ruggiero Notice Issued Date-Time: 07/13/2019 13:20 Notice Type: Patient Choice Letter Notice Delivered To: Patient Relationship to Patient: Apn Name: Delivery Method: HAND - Hand Delivered Mariangel Days: Prior Verbal Notification: Recipient Understood Notice: Yes Recipient Signature: Yes Med Rec Note Co-signed by Attending: Coverage Notice Comment: DUSTIN BRYANT Reviewer: [id number] Thang Ruggiero Notice Issued Date-Time: 07/13/2019 13:20 Notice Type: IM Discharge Notice Notice Delivered To: Patient Relationship to Patient: Apn Name: Delivery Method: HAND - Hand Delivered Mariangel Days: Prior Verbal Notification: Recipient Understood Notice: Yes Recipient Signature: Yes Med Rec Note Co-signed by Attending: Coverage Notice Comment: Patient Name: XIN WADE Page 03813 at 1427 All edits/amendments must be made on the electronic document DICTATION DATE: 07/13/191426 VISION TEACHER: DM 07/13/191426 RPT#: [id number] DC DATE: STATUS: ADM IN [facility] [address] [place] [address] END OF REPORT
--- NOTE | 2019-07-13 14:50 | NUR ---
PAGE INTO DR DEJESUS INSTRUCTOR TRAINER CANINE SERVICE FOR DR SMITH FOR DISCHARGE.
--- NOTE | 2019-07-13 15:05 | NUR ---
GIVEN OK FOR DISCHARGE PER DR DEJESUS.
--- NOTE | 2019-07-13 15:27 | NUR ---
PT DISCHARGED. IV DCD WITH TIP INTACT. RIGHT GROIN CATH SITE DRY WITH NO BLEEDING NOTED. SMALL BRUISE TO CATH SITE. INSTRUCTIONS GIVEN TO PT CONCERNING THE CARE OF HIS CATH SITE. AWAITING TRANSPORTATION TO [place]. REPORT CALLED TO EVANGELINA HENDRICKS
[2019-07-13 16:00] VITALS: BP 103/60
--- NOTE | 2019-07-13 16:00 | MORECARE ---
CASE MANAGEMENT DISCHARGE SUMMARY PATIENT: XIN WADE UNIT: [id number] ADM DATE: 07/10/19 AGE: 84 : 35 SEX: M ROOM/BED: D.2123 AUTHOR: LOLA,DOC PHYSICIAN: REFERRING PHYSICIAN: JULIUS BARDALES MD DATE OF SERVICE: 07/13/19 Discharge Plan Patient Name: XIN WADE Facility: [facility]:[place] : 1935 Planned Disposition: Nursing Facility [facility] Cert Anticipated Discharge Date: 07/13/19 Discharge Date: Expected LOS: 3 Initial Reviewer: [id number] Initial Review Date: 07/10/2019 Generated: 07/13/19 4:59 pm Comments DCP- Discharge Planning Updated by [id number]: Eb Ruggiero on 07/13/19 1:[address] Patient Name: XIN WADE Encounter No: [id number] : 1935 Primary Insurance: MEDICARE PART A ONLY Anticipated DC Date: 07-13-2019 Planned Disposition: Nursing Facility [facility] Cert External Planned Provider: [facility], LONG TERM CARE MEDICAID BED DCP follow-up note: CM RECEIVED DISCHARGE ORDER, MET WITH PT IN ROOM TO DISCUSS DISCHARGE PLANNING AND NEEDS. PT REPORTS HE HAS LIVED AT THE [facility] FOR OVER ONE YEAR, FEELS SAFE THERE AND WILL RETURN AT DISCHARGE TODAY. PT REPORTS HE CAN RIDE WHEELCHAIR VAN. PT REPORTS HE WILL NEED OXYGEN. PT DENIES FURTHER NEEDS, PT STATES HE HAS NO FAMILY TO NOTIFY OF HIS DISCHARGE. IMPORTANT MESSAGE FROM MEDICARE PROVIDED AND EXPLAINED. CM CALLED YOU OF THE [facility], , YOU CONFIRMED THAT PT IS A LONGTERM CARE RESIDENT AT THE [facility] AND THEY WILL ACCEPT BACK TODAY. RN JOSE CARLISLE FAXED REFERRAL AND DISCHARGE INFORMATION TO THE [facility] VIA [employer] AT [phone], NURSE REPORT TO BE CALLED TO THE [facility] AT [phone]. THE [facility] TO ARRANGE VAN TRANSPORTATION. Eb Ruggiero, CASE MANAGEMENT DCPIA - Discharge Planning Initial Assessment Updated by [id number]: Eb Ruggiero on 07/13/19 2:21 pm * Is the patient Alert and Oriented? Yes * How many steps to enter\exit or inside your home? NONE * PCP DR. MAY * Pharmacy [facility] * Preadmission Environment Residential Shelter * Facility Name [facility] * ADLs Independent * Equipment Other * Other Equipment ALL MEDICAL EQUIPMENT PROVIDED BY FACILITY USES WHEELCHAIR AND IS ABLE TO AMBULATE SHORT DISTANCES * List name and contact numbers for known caregivers / representatives who currently or will assist patient after discharge: LIVE JALLOH, FRIEND, * Verbal permission to speak to the caregivers and representatives has been obtained from the patient. N/A * Community resources currently utilized None * Please name any agencies selected above. NONE * Additional services required to return to the preadmission environment? No * Can the patient safely return to the preadmission environment? Yes * Has this patient been hospitalized within the prior 30 days at any hospital? No Coverage Notice Reviewer: [id number] Thang Carlisle Notice Issued Date-Time: 07/10/2019 18:32 Notice Type: Medicare Outpatient Observation Notice Notice Delivered To: Patient Relationship to Patient: Ward Clerk Name: Delivery Method: HAND - Hand Delivered Mariangel Days: Prior Verbal Notification: Recipient Understood Notice: Recipient Signature: Med Rec Note Co-signed by Attending: Coverage Notice Comment: Reviewer: [id number] Ruggiero Notice Issued Date-Time: 07/13/2019 13:20 Notice Type: Patient Choice Letter Notice Delivered To: Patient Relationship to Patient: Ward Clerk Name: Delivery Method: HAND - Hand Delivered Mariangel Days: Prior Verbal Notification: Recipient Understood Notice: Yes Recipient Signature: Yes Med Rec Note Co-signed by Attending: Coverage Notice Comment: [facility] Reviewer: [id number] Thang Ruggiero Notice Issued Date-Time: 07/13/2019 13:20 Notice Type: IM Discharge Notice Notice Delivered To: Patient Relationship to Patient: Ward Clerk Name: Delivery Method: HAND - Hand Delivered Mariangel Days: Prior Verbal Notification: Recipient Understood Notice: Yes Recipient Signature: Yes Med Rec Note Co-signed by Attending: Coverage Notice Comment: Last DP export: 07/13/19 1:27 Patient Name: XIN WADE Page [id number] Electronically Signed by TIFF [facility] TULSACatherine on 07/13/19 at 1600 All edits/amendments must be made on the electronic document DICTATION DATE: 07/13/19 5161 OTTER TRAWLER [place]: TESFAYE 07/13/19 1552 RPT#: [id number] DC DATE: STATUS: ADM IN [facility] [address] [place] [address] END OF REPORT
--- NOTE | 2019-07-13 16:45 | NUR ---
ANNETTE HERE PICKED PT LEFT UNIT VIA W/C IN STABLE CONDITION WITH ALL PERSONAL BELONGINGS
== END 2019-07-13 16:45 | DRG 247 ==
LOC: D.ER 15:17 → D.M2 18:17 → OBSVTIME 18:36 → D.M2 19:08
PROVIDERS: Family Medicine; Internal Medicine Cardiovascular Disease; ADMIT Internal Medicine Nephrology; ATTEND Internal Medicine Nephrology
PROC: 4A023N7 Measurement of Cardiac Sampling and Pressure, Left Heart, Percutaneous Approach (ICD-10-PCS; 2019-07-12)
PROC: B2121ZZ Fluoroscopy of Single Coronary Artery Bypass Graft using Low Osmolar Contrast (ICD-10-PCS; 2019-07-12)
PROC: B2181ZZ Fluoroscopy of Left Internal Mammary Bypass Graft using Low Osmolar Contrast (ICD-10-PCS; 2019-07-12)
PROC: B2151ZZ Fluoroscopy of Left Heart using Low Osmolar Contrast (ICD-10-PCS; 2019-07-12)
PROC: B2111ZZ Fluoroscopy of Multiple Coronary Arteries using Low Osmolar Contrast (ICD-10-PCS; 2019-07-12)
PROC: 02703ZZ Dilation of Coronary Artery, One Artery, Percutaneous Approach (ICD-10-PCS; principal; 2019-07-12 08:43)
PROC: 027034Z Dilation of Coronary Artery, One Artery with Drug-eluting Intraluminal Device, Percutaneous Approach (ICD-10-PCS; 2019-07-12 08:43)
DX: I21.4 Non-ST elevation (NSTEMI) myocardial infarction (principal); I50.22 Chronic systolic (congestive) heart failure; N17.9 Acute kidney failure, unspecified; I48.20 Chronic atrial fibrillation, unspecified; I25.110 Atherosclerotic heart disease of native coronary artery with unstable angina pectoris; D64.9 Anemia, unspecified; E87.5 Hyperkalemia; I11.0 Hypertensive heart disease with heart failure; Z79.01 Long term (current) use of anticoagulants

== ENCOUNTER 2019-10-18 00:42 | Inpatient (IN) | payer MEDICARE, MEDICAID ==
[2019-10-18] VITALS (76 sets, daily range): BP systolic 62–135; BP diastolic 38–88; Ht 175.3 cm; Wt 85.2 kg
[~2019-10-18] VITALS: Ht 175.3 cm; Wt 85.2 kg
--- NOTE | ~2019-10-18 | HEMODYNAMI ---
PATIENT:XIN WADE MEDICAL RECORD: [id number] : 35 [id number] ADMISSION DATE: 10/18/19 Generatedon:10/20/201915:32 Patient name: XIN WADE Patient #: [id number] SSN: [id number] : 1935 Date of study: 10/19/2019 Page: Of Hemodynamic Procedure Report Patient Data Patient Demographics First Name: XIN Gender: Male Last Name: MAURO : 1935 Middle Initial: E Age: 84 year(s) Patient #: [id number] Race: SSN: [id number] Additional ID: [id number] Contact details [address]: [address] [place] [address] State: [place] City: [place] Zip code: [address] Past Medical History Allergies: No known allergies Admission Admission Data Admission Date: 10/18/2019 Admission Time: 4:03 Arrival Date: 10/19/2019 Arrival Time: 0:00 Admit Source: Other Insurance Payor: Private Room #: D.CV06 health insurance, Medicaid [facility] #: [id number] Height (in.): 68.9 BSA: 2 (m2) Height (cm.): 175 BMI: 27.43 (kg/m2) Weight (lbs.): 185.19 Weight (kg.): 84 Lab Results Lab Result Date: 10/19/2019 Lab Result Time: 0:00 Biochemistry Name Units Result Min Max BUN mg/dl 29 --(----)-* 7 18 Creatinine mg/dl 1.4 --(----)*- 0.6 1.3 CBC Name Units Result Min Max Hemoglobin g/dl 11 *-(----)-- 13.5 17.5 Procedure Procedure Types Cath Procedure Diagnostic Procedure LHC LHC w/Coronaries w/Grafts Sedation Charges Moderate Sedation up to 30 minutes PCI Procedure PTCA PTCA Initial Hemochron ACT Test Procedure Description Procedure Date Procedure Date: 10/19/2019 Procedure Start Time: 14:22 Procedure End Time: 14:50 Procedure Staff Name Function Renee Wilson RT Scrub Israel Farley MD Performing Physician Maria Isabel Talbert RT Monitor Maryjo Jones RT Monitor Candy Hebert RN Nurse Procedure Data Cath Procedure Fluoroscopy Diagnostic fluoroscopy Total fluoroscopy Time: 5.5 time: 5.5 min min Diagnostic fluoroscopy Total fluoroscopy dose: dose: 1035 mGy 1035 mGy Contrast Material Contrast Material Type Amount (ml) Isovue 300 81 Entry Location Entry Primary Successful Side Size Upsize Upsize Entry Closure Succes sful Closure Location (Fr) 1 (Fr) 2 (Fr) Remarks Device Remarks Femoral Right 5 Fr 6 Fr Exoseal artery Short Estimated blood loss: 10 ml Diagnostic catheters Device Type Used For End Catheter Placement MULTIPACK Pigtail 5 Fr Procedure catheter MULTIPACK JL 4.0 5Fr Procedure catheter MULTIPACK 3DRC 5Fr Procedure catheter Procedure Complications No complications Procedure Medications Medication Administration Route Dosage 0.9% NaCl I.V. 100 ml/hr Oxygen etCO2 Nasal cannula 2 l/min Lidocaine 2% added to field 20 Heparin Flush Bag added to field 2 bags (1000units/500ml NS) Versed I.V. 2 mg Fentanyl I.V. 50 mcg Heparin Bolus I.V. 8500 units Amiodarone I.V. drip 0.5 mg/min (600mg/100ml) Levophed (8mg/250ml I.V. drip 5 mcg/min D5W) Hemodynamics Rest BSA: 2 (m2) HGB: 11 (g/dl) O2 Consumption: Estimated: 226.76 (ml/min) O2 Consump tion indexed: Estimated:113.38 (ml/min/m) Heart Rate: 69 (bpm) Pressure Samples Time Site Value (mmHg) Purpose Heart Use Rate(bpm) 14:24 LV 106/-22,-1 Snapshot 69 Gradients Valve Time Site Site Mean SEP/DFP Peak To Heart Use 1 2 (mmHg) (sec/min) Peak Rate (mmHg) (bpm) Aortic 14:25 LV AO 91 Snapshots Pre Cath Intra NCS Post Cath Vital Signs Time Heart Resp SPO2 etCO2 NIBP (mmHg) Rhythm Pain Sedation Rate (ipm) (%) (mmHg) Status Level (bpm) 14:04:14 104 13 99 33.1 117/84(110) A-Fib 0 (11) 10(A) , No pain 14:09:13 82 19 96 0 Measuring A-Fib 0 (11) 10(A) , No pain 14:10:28 110 19 97 31.6 Disturbed A-Fib 0 (11) 10(A) , No pain 14:12:17 95 18 97 0 133/73(114) A-Fib 0 (11) 10(A) , No pain 14:16:33 74 11 97 3 115/71(92) A-Fib 0 (11) 10(A) , No pain 14:20:49 94 13 97 3.7 93/49(71) A-Flutter 0 (11) 10(A) , No pain 14:24:55 96 14 99 8.2 109/56(87) A-Flutter 0 (11) 10(A) , No pain 14:29:05 90 10 99 4.5 112/61(86) A-Flutter 0 (11) 9(A) , No pain 14:33:19 99 10 100 6 112/58(76) A-Flutter 0 (11) 9(A) , No pain 14:37:31 96 10 100 6.7 94/64(86) A-Flutter 0 (11) 9(A) , No pain 14:41:32 97 12 100 30.1 111/68(92) A-Fib 0 (11) 10(A) , No pain 14:45:44 92 14 99 15 110/58(88) A-Fib 0 (11) 10(A) , No pain 14:49:54 88 11 100 41.4 108/65(87) A-Fib 0 (11) 10(A) , No pain Medications Time Medication Route Dose Verified Delivered Reason Not es Effectiveness by by 14:05:50 0.9% NaCl I.V. 100 Israel Candy used for ml/hr Miguelito Hebert electric meter repairer helper 14:05:57 Oxygen etCO2 2 l/min Israel Candy used for Nasal Miguelito Hebert procedure cannula RN 14:06:02 Lidocaine 2% added 20ml Israel Israel for local to vial Miguelito Farley MD anesthetic field 14:06:06 Heparin Flush added 2 bags Israel Israel used for Bag to Miguelito Farley MD procedure (1000units/500ml field NS) 14:06:17 Amiodarone I.V. 0.5 Israel Candy Per physician inf using (600mg/100ml) drip mg/min Miguelito Hebert upon RN arrival to 14:06:54 Levophed I.V. 5 Israel Candy For hypotension inf using (8mg/250ml D5W) drip mcg/min Miguelito Hebert upon RN arrival to 14:23:49 Fentanyl I.V. 50 mcg Israel Candy for sedation Miguelito Hebert RN 14:23:50 Versed I.V. 2 mg Israel Candy for sedation Miguelito Hebert RN 14:35:57 Heparin Bolus I.V. 8500 Israel Candy for caridad ified units Miguelito Hebert anticoagulation with Dr. ELADIO Farley Procedure Log Time Note 13:48:43 Admit Source: Other 13:48:45 Arrival Date: 10/19/2019 12:00:00 AM 13:49:06 Insurance Payor : Private health insurance, Medicaid 13:51:13 Patient Height : 68.9 inches 13:51:20 Patient Weight : 185.19 lbs 13:52:04 Lab Result : Hemoglobin 11 g/dl 13:52:04 Lab Result : Creatinine 1.4 mg/dl 13:52:04 Lab Result : BUN 29 mg/dl 13:52:20 Diagnostic Cath Status : Elective 13:52:48 Procedure Status Elective Heart Cath (OP). 13:52:51 Candy Hebert RN sent for patient. Start room use. 13:53:05 Time tracking: Regular hours (M-F 7:00 - 5:00) 13:53:12 Plan of Care:Hemodynamics will remain stable., Cardiac rhythm will remain stable., Comfort level will be maintained., Respiratory function will remain adequate., Patient/ family verbilizes understanding of procedure., Procedure tolerated without complication., Recovers from procedure without complications.. 13:53:20 Patient received from CVICU to CCL 2 Alert and oriented. Tansferred to table in Supine position. 13:53:21 Warm blankets applied, and davis hugger turned on for patient comfort. 13:53:22 Correct patient and procedure confirmed by team. 13:53:27 H&P Date Dictated: 10/19/2019 Within 30 days and on chart.. 13:53:29 Pre-procedure instructions explained to patient. 13:53:31 Family in patients room. 13:53:33 Patient NPO since Midnight. 13:53:46 Patient allergic to No known allergies 13:53:50 Is the patient allergic to Iodine/contrast media? No. 14:03:15 Vital chart was started 14:05:06 Is patient on blood thinner?No 14:05:10 Patient diabetic? No. 14:05:13 Snore? Yes 14:05:15 Sleep apnea? No 14:05:20 Airway obstruction? Yes COPD 14:05:27 Patient pain scale 0/10 ?. 14:05:34 IV patent on arrival in left forearm with 0.9% NaCl at [facility]. 14:05:38 Lab results completed and on chart. 14:05:46 Stress Test: no; N/A ? 14:05:50 0.9% NaCl 100 ml/hr I.V. was administered by Candy Hebert RN; used for procedure; Verbal order read back and verified. 14:05:53 Risk of Mortality: 1.1 14:05:56 Risk of blood transfusion: 4.1 14:05:57 Oxygen 2 l/min etCO2 Nasal cannula was administered by Candy Hebert RN; used for procedure; Verbal order read back and verified. 14:06:02 Lidocaine 2% 20ml vial added to field was administered by Israel Farley MD; for local anesthetic; Verbal order read back and verified. 14:06:06 Right groin area was prepped with chlora-prep and draped in sterile fashion 14:06:06 Heparin Flush Bag (1000units/500ml NS) 2 bags added to field was administered by Israel Farley MD; used for procedure; Verbal order read back and verified. 14:06:07 Alarms reviewed by R. N. 14:06:08 Sharps counted by scrub and verified by R.N. 14:06:11 Physician paged 14:06:17 Amiodarone (600mg/100ml) 0.5 mg/min I.V. drip was administered by Candy Hebert RN; Per physician; infusing upon arrival to Verbal order read back and verified. 14:06:54 Levophed (8mg/250ml D5W) 5 mcg/min I.V. drip was administered by Candy Hebert RN; For hypotension; infusing upon arrival to Verbal order read back and verified. 14:19:59 Physician arrived 14:20:00 --------ALL STOP TIME OUT------ 14:20:02 Final Timeout: patient, procedure, and site verified with staff and physician. All members of the team are in agreement. 14:21:40 Right groin site verified by team. 14:21:45 Fire Safety Assessment: A--An alcohol-based skin anteseptic being used preoperatively., C--Open oxygen or nitrous oxide is being used., D--An ESU, laser, or fiber-optic light is being used. 14:21:57 Physical assessment completed. ASA score P 4 - A patient with severe systemic disease that is a constant threat to life as per Israel Farley MD. 14:22:06 3a) 45-59 Moderately reduced kidney function. 14:22:12 Maximum allowable contrast dose (3.7 X eGFR X 0.75)141 ml. 14:22:16 Sedation plan: IV Moderate Sedation Medication:Versed, Fentanyl 14:22:20 Use device set Femoral Dx 14:22:22 Full Disclosure recording started 14:22:22 Procedure started. 14:22:38 Local anesthetic to right femoral artery with Lidocaine 2% by Israel Farley MD.INITIAL ACCESS ONLY 14:22:46 A 5 Fr sheath was inserted into the Right Femoral artery 14:22:50 ACIST Syringe (43540) opened to sterile field. 14:22:51 Medline Cath Pack ([id number]) opened to sterile field. 14:22:51 Bag Decanter (2002) opened to sterile field. 14:22:53 ACIST Manifold (58672) opened to sterile field. 14:22:53 ACIST Hand Control (86993) opened to sterile field. 14:22:55 DIAGNOSTIC Multipack 5Fr catheter set (ES1868) opened to sterile field. 14:22:59 SHEATH 5FR Hopkins (KTU159) opened to sterile field. 14:23:00 EMERALD Guide Wire (047-606) opened to sterile field. 14:23:49 Fentanyl 50 mcg I.V. was administered by Candy Anup RN; for sedation; Verbal order read back and verified. 14:23:50 Versed 2 mg I.V. was administered by Candy Hebert RN; for sedation; Verbal order read back and verified. 14:24:01 A MULTIPACK Pigtail 5 Fr catheter was advanced over the wire and used for Procedure. 14:24:24 LV angiography performed. 14:25:12 EF : 25 % 14:25:29 Catheter removed. 14:25:41 A MULTIPACK JL 4.0 5Fr catheter was advanced over the wire and used for Procedure. 14:26:07 LCA angiography performed. 14:27:49 Catheter removed. 14:27:57 A MULTIPACK 3DRC 5Fr catheter was advanced over the wire and used for Procedure. 14:28:22 RCA angiography performed. 14:29:55 Catheter removed. 14:30:15 6 Fr xblad3.5 guide catheter was inserted over the wire 14:30:34 GUIDE 6FR XBLAD 3.5 catheter ([id number]) opened to sterile field. 14:30:35 INFLATOR Merit BasixCompak (JH8129) opened to sterile field. 14:30:35 BMW 300cm [place] 2 J wire ([id number]) opened to sterile field. 14:30:36 SHEATH 6FR Hopkins (OVX695) opened to sterile field. 14:30:37 TUBING High Pressure Extension Tubing (Miguelito) (OQ4810B) opened to sterile field. 14:30:43 Proceeding to intervention. 14:30:49 ACC Pre-intervention WANDA Flow is 3. 14:30:51 Sheath upsized to a 6 Fr Short. 14:30:59 LATE ENTRY: 14:30:59 XBLAD 3.5 6 SERBIAN WAS INSERTED OVER THE WIRE 14:30:59 Pre PCI Site: [place] LMCA has 90% stenosis. 14:31:00 LATE ENTRY: 14:31:00; ASAHI 300 WIRE IS ADVANCED. 14:31:15 LATE ENTRY: 14:31:15: THE ASAHI WIRE IS ADVANCED ACROSS LESION. 14:35:57 Heparin Bolus 8500 units I.V. was administered by Candy Hebert RN; for anticoagulation; verified with Dr. Farley Verbal order read back and verified. 14:37:35 Inflate balloon Inflation number: 1 A EMERGE OTW 3.0 x 15 balloon ([id number]) was prepped and advanced across the LMCA 90, then inflated to 16 SUSAN for 0:10 (min:sec) 0. 14:38:26 LATE ENTRY: 14:38:26 INFLATION NUMBER: 2 THE EMERGE OTW 3.0 X15 BALLOON ([id number]) WAS REINFLATED ACROSS THE CIRC 0 , TO 17 SUSAN FOR 0:16(MIN:SEC). 14:38:26 Inflation number: 2 The EMERGE OTW 3.0 x 15 balloon ([id number]) was reinflated across the LMCA 0, to 17 SUSAN for 0:16 (min:sec) . 14:40:43 Balloon removed over the wire. 14:40:44 Wire removed. 14:40:45 Guide catheter removed. 14:41:03 EXOSEAL 6Fr (EX600) opened to sterile field. 14:41:24 Sheath removed intact; hemostasis achieved with Exoseal to the Right Femoral artery. 14:41:30 Procedure ended.(Physican Out) 14:42:01 Contrast amount:Isovue 300 81ml. 14:42:15 Fluoroscopy time 05.50 minutes. 14:42:22 Fluoroscopy dose: 1035 mGy 14:42:22 Flurop Dose total: 1035 14:42:31 Dose Area Product 90134 mGy/cm. 14:42:37 Maximum allowable dose exceeded? No. 14:42:39 Sharps counted by scrub and verified by R.N. 14:43:28 asahi 300 wire advanced. 14:43:33 Wire advanced across lesion. 14:43:57 ACC Post-intervention WANDA Flow is 3. 14:44:09 Post PCI Site: [place] LMCA has 0% stenosis. 14:44:10 ACT drawn and resulted at >400- out of range seconds. (normal therapeutic range 180-240 seconds). 14:46:20 Insertion/operative site no bleeding no hematoma. 14:46:26 Post-op/insertion site Right Femoral artery dressed using a 4 x 4 and Tegaderm. 14:46:29 Post Procedure Pulses reassessed and unchanged 14:46:38 Post-procedure physical assessment completed. ASA score P 2 - A patient with mild systemic disease as per Israel Farley MD. 14:46:42 Post procedure rhythm: unchanged. 14:46:46 Estimated blood loss: 10 ml 14:46:48 Post procedure instruction explained to patient.Patient verbalizes understanding. 14:46:49 Patient needs reinforcement of post procedure teaching. 14:48:14 Procedure type changed to Cath procedure, Diagnostic procedure, LHC, LHC w/Coronaries w/Grafts, Sedation Charges, Moderate Sedation up to 30 minutes, PCI procedure, PTCA, PTCA Initial, Hemochron ACT Test 14:48:17 Procedure and supply charges have been captured, reviewed, submitted and are correct. 14:50:12 Procedure Complication : No complications 14:50:15 Vital chart was stopped 14:50:18 [facility] Findings: MVD- PCI performed (see procedure note) 14:50:22 See physician's report for complete and final results. 14:50:22 Operative report dictated upon procedure completion. 14:50:29 Report given to ICU. 14:50:34 Patient transfered to ICU with Bed. 14:50:37 Full Disclosure recording stopped 14:50:37 Procedure ended. 14:51:04 ACC-PCI Only Patient was given prescriptions, or instructed by Israel Farley MD to start/continue the following medications upon discharge: Plavix 14:51:06 End room use (Document Last) Intervention Summary Intervention Notes Time ActionType Lesion and Equipment Action# Pressure Duration Attributes Used 14:37:35 Inflate LMCA EMERGE OTW 1 16 00:10 balloon 3.0 x 15 balloon ([id number]) 14:38:26 Reinflate LMCA EMERGE OTW 2 17 00:16 balloon 3.0 x 15 balloon ([id number]) Device Usage Item Name Manufacture Quantity Catalog Number Hospital Part Current Min imal Lot# / Charge Number Stock Stock Serial# Code ACIST Acist 1 11131 110175 025493 840816 20 Syringe Medical (39523) Systems Inc Bag Decanter Microtek 1 2001S 594538 62310 815794 5 () Medical Inc. Medline Cath Medline 1 [id number] 695719 62184 922844 5 Pack ([id number]) ACIST Hand Acist 1 08664 237808 553527 090090 5 Control Medical (58066) Systems Inc ACIST Acist 1 74697 095579 627628 992187 5 Manifold Medical (14519) Systems Inc DIAGNOSTIC Cardinal 1 GX4852 340607 30788 218057 30 Multipack Health 5Fr catheter set (WP8443) SHEATH 5FR Terumo 1 ICA576 173975 110066 729446 5 Hopkins (VAR744) EMERALD Cardinal 1 029-455 757596 631279 270551 5 Guide Wire Health (502-755) MULTIPACK Cardinal 1 778813 5 Pigtail 5 Fr Health catheter MULTIPACK JL Cardinal 1 012008 5 4.0 5Fr Health catheter MULTIPACK Cardinal 1 009849 5 3DRC 5Fr Health catheter GUIDE 6FR Cardinal 1 [id number] 693622 842513 457214 10 XBLAD 3.5 Health catheter (38325719) BMW 300cm Emmanuel 1 [id number] 473042 860630 676045 5 [place] 2 Vascular J wire (7442085B) INFLATOR Merit 1 SY6339 914268 311202 623024 15 Merit Medical BasixCompak (JW3988) SHEATH 6FR Terumo 1 JAG591 265489 236340 280350 40 Hopkins (DTB313) TUBING High Merit 1 [id number] 931517 93739 120067 10 Pressure Medical Extension Tubing (Farley) (ST3369V) EMERGE OTW [place] 1 [id number] 775120 542260 741809 5 [id number] 3.0 x 15 Scientific balloon ([id number]) EXOSEAL 6Fr Cardinal 1 EX600 033221 914964 096161 10 (EX600) Health Signature Audit [place] Stage Time Signature Unsigned Intra-Procedure 10/19/2019 Maryjo 2:51:28 PM Nannemann RT(R) (CV) Intra-Procedure 10/19/2019 Candy Hebert 2:52:02 PM RN Intra-Procedure 10/19/2019 Israel Hebert RN 2:52:39 PM 10/20/2019 3:21:21 PM Intra-Procedure 10/20/2019 Maryjo 3:32:05 PM Karen RT(R) (CV) Intra-Procedure 10/20/2019 Israel Farley MD 3:32:39 PM Signatures Performing Physician : Signature : Israel Farley MD Date : Time : Monitor : Maria Isabel Nitish Signature : RT Date : Time : Monitor : Maryjo Signature : Nannemann RT Date : Time : Nurse : Candy Anup RN Signature : Date : Time : [address] [place] [address]
[~2019-10-18 00:42] MED LIST changes: +DEPAKOTE500 MG PO; +FLOMAX0.4 MG PO; +LASIX40 MG PO; +LISINOPRIL5 MG PO; +MELATONIN 3 MG1 TAB PO; +PLAVIX75 MG PO; +REMERON30 MG; +TYLENOL ARTHRI650 MG PO
[2019-10-18] MEDS ORDERED: CALCIUM 500 +1 EAC3 PO (01:05)
[2019-10-18] MEDS ORDERED: CLARITIN 10 MG10 MG PO (01:07)
[2019-10-18] MEDS ORDERED: NEURONTIN 300300 MG PO (01:07)
[2019-10-18 01:23] LABS: BASOPHILS 0.1 % (0-2); EOSINOPHILS 2.7 % (0-7); HEMATOCRIT 35.9 % (42.0-54.0); HEMOGLOBIN 11.1 g/dL (13.5-17.5); IMMATURE GRANULOCYTES 1.2 % (0-5); LYMPHOCYTES 37.5 % (15-50); MCH 28.7 pg (26.0-34.0); MCHC 30.9 g/dL (31.0-37.0); MCV 92.8 fL (80.0-100.0); MEAN PLATELET VOLUME 10.5 fL (7.4-10.4); MONOCYTES 10.3 % (2-11); NEUTROPHILS 48.2 % (40-80); RBC 3.87 10x6/uL (4.20-6.10); RDW 14.6 % (11.5-14.5); WBC 10.2 10x3/uL (4.8-10.8)
[2019-10-18 01:26] LABS: CALC OSMOLALITY 291 mosm/kg (275-300); CALCIUM 8.3 mg/dL (8.5-10.1); CARBON DIOXIDE 25.2 mmol/L (21.0-32.0); CHLORIDE - SERUM 109 mmol/L (98-107); CREATININE - SERUM 1.8 mg/dL (0.6-1.3); GLUCOSE 90 mg/dL (74-106); POTASSIUM - SERUM 5.3 mmol/L (3.5-5.1); SODIUM 141 mmol/L (136-145); UREA NITROGEN 42 mg/dL (7-18); eGFR NON AFRICAN AMERICAN 38 mL/min (90-120)
[2019-10-18 01:28] LABS: APTT 29.1 SECONDS (22.8-39.4); INR 1.14 (0.85-1.17); PROTIME 14.6 SECONDS (11.6-15.0)
[2019-10-18 01:37] LABS: PLATELET COUNT 290 10x3/uL (130-400)
[2019-10-18 01:40] LABS: ALBUMIN 2.6 g/dL (3.4-5.0); ALKALINE PHOSPHATASE 54 U/L (30-120); ALT (SGPT) 17 U/L (10-68); CKMB 1.2 U/L (0.0-3.6); CREATINE KINASE 52 UL (21-232); PRO BNP 2038 pg/mL (0-450); PROTEIN - SERUM 6.5 g/dL (6.4-8.2)
--- NOTE | 2019-10-18 02:10 | NUR ---
250 ML NS BOLUS STARTED AT 0155 FINISHED AT 0210.
--- NOTE | 2019-10-18 03:16 | NUR ---
250ML NS BOLUS STARTED AT 030 FINISHED AT 315.
--- NOTE | 2019-10-18 04:19 | NUR ---
[facility] DRIP STARTED AT 0402 FINISHED AT 0412.
--- NOTE | 2019-10-18 05:00 | NUR ---
PT ARRIVED ON UNIT VIA STRETCHER, HOOKED TO MONITORS, ON 2L NC WITH 97% O2 SAT. AFIB ON HR MONITORS, ALL PPP, WILL CON'T TO MONITOR
--- NOTE | 2019-10-18 05:12 | NUR ---
CONSULT CALLED TO DR. SMITH, NEW ORDERS RECIEVED,
[2019-10-18] MEDS ORDERED: TOPROL XL25 MG PO (05:48)
--- NOTE | 2019-10-18 07:00 | NUR ---
REC'D REPORT FROM CYNDI JONES RN AND RESUMED CARE, PT. SLEEPING WITH NO SIGNS OF DISTRESS, AROUSED TO VERBAL STIMULI, ORIENTED, FOLLOWS COMMANDS, VSS, DENIES PAIN, ASSESSMENT COMPLETED PER FLOWSHEET, CALL LIGHT IN REACH, NO NEEDS AT THIS TIME
--- NOTE | 2019-10-18 07:50 | NUR ---
SBP 62, LEVOPHED INITIATED AT 5MCG PER ORDER
[2019-10-18 08:01] LABS: CKMB 1.1 U/L (0.0-3.6); CREATINE KINASE 42 UL (21-232)
[2019-10-18 08:06] LABS: TROPONIN-I 0.078 ng/mL (0.000-0.060)
--- NOTE | 2019-10-18 09:15 | NUR ---
MORNING MEDS GIVEN WITH SIPS, TOLERATED WITHOUT DIIIICULTY
--- NOTE | 2019-10-18 11:00 | NUR ---
CALLED TO BEDSIDE, URINAL WITH CLOUDY YELLOW DRAINAGE EMPTIED 50CC, NO OTHER ACUTE CHANGE FROM PREVIOUS ASSESSMENT
--- NOTE | 2019-10-18 11:00 | NUR ---
CALLED TO ROOM, 50 CC URINE TO URINAL EMPTIED, NO HTER ACUTE CHANGES FROM PREVIOUS ASSESSMENT, DR. SMITH AT BEDSIDE, KEEP PATIENT NPO, MAY TAKE HIM TO CATH LAG TODAY
[2019-10-18 12:50] LABS: CKMB 3.8 U/L (0.0-3.6); CREATINE KINASE 54 UL (21-232)
[2019-10-18 12:57] LABS: TROPONIN-I 0.485 ng/mL (0.000-0.060)
--- NOTE | 2019-10-18 13:40 | NUR ---
CALLED TO BEDSIDE, URINAL WITH YELLOW CLOUDY DRAINAGE EMPTIED 50 CC
--- NOTE | 2019-10-18 15:00 | NUR ---
REASSESSMENT COMPLETED, AAO, VSS DENIES PAIN AT THIS TIME, STATES ONLY WHEN COUGHING, NO ACTE CHANGE FROM PREVIOUS, AWAITING POSSIBLE CATH WITH DR SMITH
[2019-10-18 15:28] LABS: % SATURATION 23 % (15-55); IRON 52 ug/dl (35-150); TOTAL IRON BIND CAPACITY 217 ug/dl (260-445); UNSAT IRON BIND CAPACITY 165 ug/dl (150-375)
[2019-10-18 15:55] LABS: THYROID STIMULATING HORMONE 2.75 uIU/mL (0.36-3.74)
--- NOTE | 2019-10-18 16:30 | NUR ---
MIJARES CATH INSERTED, WITHOUT DIFFICULTY, 650 CC YELLOW CLOUDY URINE RETURNED, BATH AND LINEN CHANGE COMPLETED
--- NOTE | 2019-10-18 16:55 | NUR ---
TRANSVER TO CVO6 VIA BED WITH PERSONNEL X2, AAO, TOLERATED WITHOUT DIFFICULTY
--- NOTE | 2019-10-18 17:11 | NUR ---
PT RECIEVED TO CV06 ALERT AN DORIENTED VSS NO SIGNS OF PAIN, CALL LIGHT WITHIN REACH, SPOKE WITH DR SMITH, ORDERS TO KEEP AMIO AT 1MG AND WILL CATH IN AM
--- NOTE | 2019-10-18 17:57 | NUR ---
1720 CLAMPED MIJARES FOR UA 1750 ATTEMPTED TO COLLECT UA, NOT ADEQUATE URINE
--- NOTE | 2019-10-18 18:24 | NUR ---
PAGED DR CARRERO PTS HR DROPPING INTO 50S, UPDATED THAT DR SMITH HAD WANTED AMIO 1MG THROUGHOUT NIGHT, ORDERS TO DROP TO 0.5MG
[2019-10-18 18:59] LABS: CKMB 6.4 U/L (0.0-3.6); CREATINE KINASE 61 UL (21-232)
--- NOTE | 2019-10-18 19:00 | NUR ---
BEDSIDE REPORT AND SHIFT ASSESSMENT COMPLETE, SEE FLOWSHEET. PT ALERT AND ORIENTED, SPEECH CLEAR. VSS, NO SIGNS OF DISTRESS NOTED. L FOREARM PIV PATENT, SEE IV FLOWSHEET. PT DENIES NEEDS AT THIS TIME. CALL LIGHT IN REACH, BED IN LOWEST POSITION. WILL MONITOR.
--- NOTE | 2019-10-18 19:22 | MORECARE ---
CASE MANAGEMENT DISCHARGE SUMMARY PATIENT: XIN WADE UNIT: [id number] ADM DATE: 10/18/19 AGE: 84 : 35 SEX: M ROOM/BED: [facility] AUTHOR: TIFF DAVILA PHYSICIAN: REFERRING PHYSICIAN: JULIUS BARDALES MD DATE OF SERVICE: 10/18/19 Discharge Plan Patient Name: XIN WADE Facility: [facility]:[place] : 1935 Planned Disposition: Anticipated Discharge Date: Discharge Date: Expected LOS: Initial Reviewer: [id number] Initial Review Date: 10/18/2019 Generated: 10/18/19 8:22 pm Patient Name: XIN WADE Page 07646 at 1921 All edits/amendments must be made on the electronic document DICTATION DATE: 10/18/191921 FREIGHT CAR REPAIRER: TESFAYE 10/18/191921 RPT#: [id number] DC DATE: STATUS: ADM IN [facility] [address] [place] [address] END OF REPORT
--- NOTE | 2019-10-18 19:29 | MORECARE ---
CASE MANAGEMENT DISCHARGE SUMMARY PATIENT: XIN WADE UNIT: [id number] ADM DATE: 10/18/19 AGE: 84 : 35 SEX: M [facility] AUTHOR: TIFF DAVILA PHYSICIAN: REFERRING PHYSICIAN: JULIUS BARDALES MD DATE OF SERVICE: 10/18/19 Discharge Plan Patient Name: XIN WADE Facility: [facility]:[place] : 1935 Planned Disposition: Anticipated Discharge Date: Discharge Date: Expected LOS: Initial Reviewer: [email or web address] Initial Review Date: 10/18/2019 Generated: 10/18/19 8:29 pm DCPIA - Discharge Planning Initial Assessment Updated by [email or web address]: oL Chanel on 10/18/19 7:22 pm * Is the patient Alert and Oriented? Yes * How many steps to enter\exit or inside your home? * PCP [facility] * Pharmacy [facility] * Preadmission Environment [facility] * Facility Name [facility] * ADLs Partial Dependent * Partial ADLs (Assistance needed) Ambulation Bathing Dressing Eating Medication Management Toileting Transfers * List name and contact numbers for known caregivers / representatives who currently or will assist patient after discharge: Jania Parson - [phone] * Verbal permission to speak to the caregivers and representatives has been obtained from the patient. Yes * Community resources currently utilized None * Additional services required to return to the preadmission environment? No * Can the patient safely return to the preadmission environment? Yes * Has this patient been hospitalized within the prior 30 days at any hospital? No Last DP export: 10/18/19 6:22 p Patient Name: XIN WADE Page 63287 at 1929 All edits/amendments must be made on the electronic document DICTATION DATE: 10/18/191928 OFFICE CLINICIAN: TESFAYE 10/18/191928 RPT#: [id number] DC DATE: STATUS: ADM IN [facility] [address] [place] [address] END OF REPORT
--- NOTE | 2019-10-18 19:36 | MORECARE ---
CASE MANAGEMENT DISCHARGE SUMMARY PATIENT: XIN WADE UNIT: [id number] ADM DATE: 10/18/19 AGE: 84 : 35 SEX: M ROOM[facility]BED: [facility] AUTHOR: LOLA,DOC PHYSICIAN: REFERRING PHYSICIAN: JULIUS BARDALES MD DATE OF SERVICE: 10/18/19 Discharge Plan Patient Name: XIN WADE Facility: [facility]:[place] : 1935 Planned Disposition: Anticipated Discharge Date: Discharge Date: Expected LOS: Initial Reviewer: [email or web address] Initial Review Date: 10/18/2019 Generated: 10/18/19 8:35 pm Comments DCP- Discharge Planning Updated by [id number]: Lo Chanel on 10/18/19 6:[address] Patient Name: XIN WADE Admission Status: ER Accout number: [id number] Admission Date: 10-18-2019 : 1935 Admission Diagnosis: Attending: JULIUS BARDALES Current LOS: 1 Anticipated DC Date: Planned Disposition: Primary Insurance: [facility] Discharge Planning Comments: CM met with patient to complete initial dc planning assessment. CM educated patient on the CM role and verbal consent given by patient to complete assessment. CM verified patient's address, phone number, and emergency contact phone numbers. Patient is a resident [facility]. At discharge patient plans to return to the [facility] and feels this is a safe discharge. YING form signed by patient for return to [facility]. Signed form placed in chart and signed form given to patient. Patient denied further known discharge needs at this time. . Transportation provider at discharge will be [facility] . CM will continue to follow and will assist as needed with dc plans/needs. Director Product: Lo Chanel DCPIA - Discharge Planning Initial Assessment Updated by [email or web address]: Lo Chanel on 10/18/19 7:22 pm * Is the patient Alert and Oriented? Yes * How many steps to enter\exit or inside your home? * PCP [facility] * Pharmacy [facility] * Preadmission Environment [facility] * Facility Name [facility] * ADLs Partial Dependent * Partial ADLs (Assistance needed) Ambulation Bathing Dressing Eating Medication Management Toileting Transfers * List name and contact numbers for known caregivers / representatives who currently or will assist patient after discharge: Jania Parson - [phone] * Verbal permission to speak to the caregivers and representatives has been obtained from the patient. Yes * Community resources currently utilized None * Additional services required to return to the preadmission environment? No * Can the patient safely return to the preadmission environment? Yes * Has this patient been hospitalized within the prior 30 days at any hospital? No Last DP export: 10/18/19 6:29 p Patient Name: XIN WADE Page 19169 at 1936 All edits/amendments must be made on the electronic document DICTATION DATE: 10/18/191934 NUCLEAR TEST TECHNICIAN: TESFAYE 10/18/191934 RPT#: [id number] DC DATE: STATUS: ADM IN [facility] [address] [place] [address] END OF REPORT
--- NOTE | 2019-10-18 20:30 | NUR ---
MEDS GIVEN PER OCT. PT REQUESTING TO SLEEP. WILL MONITOR.
--- NOTE | 2019-10-18 23:00 | NUR ---
REASSESSMENT COMPLETE, SEE FLOWSHEET. VSS, NO SIGNS OF DISTRESS NOTED. PT SLEEPING.
[2019-10-19] VITALS (86 sets, daily range): BP systolic 83–129; BP diastolic 18–77
--- NOTE | 2019-10-19 01:00 | NUR ---
UA COLLECTED AND SENT TO LAB. PT REQUESTING DRINK OF WATER, INFORMED OF NPO STATUS.
[2019-10-19 01:45] LABS: BILIRUBIN NEGATIVE (NEGATIVE); GLUCOSE NEGATIVE (NEGATIVE); KETONE NEGATIVE (NEGATIVE); NITRITE NEGATIVE (NEGATIVE); SPECIFIC GRAVITY 1.015 (1.005-1.020); UROBILINOGEN NORMAL (NORMAL)
[2019-10-19 01:46] LABS: BACTERIA FEW /hpf (NEGATIVE); EPITHELIAL CELLS 0-5 /hpf (0-5); RED CELLS - URINE 25-50 /hpf (0-5); WHITE CELLS - URINE 0-5 /hpf (NEGATIVE)
--- NOTE | 2019-10-19 05:00 | NUR ---
PT SLEEPING. VSS, NO SIGNS OF ACUTE DISTRESS NOTED.
[2019-10-19 05:54] LABS: BASOPHILS 0.1 % (0-2); EOSINOPHILS 2.3 % (0-7); HEMATOCRIT 35.6 % (42.0-54.0); IMMATURE GRANULOCYTES 0.9 % (0-5); LYMPHOCYTES 18.7 % (15-50); MCH 28.7 pg (26.0-34.0); MCHC 30.9 g/dL (31.0-37.0); MEAN PLATELET VOLUME 10.4 fL (7.4-10.4); MONOCYTES 10.7 % (2-11); NEUTROPHILS 67.3 % (40-80); PLATELET COUNT 297 10x3/uL (130-400); RBC 3.83 10x6/uL (4.20-6.10); RDW 14.7 % (11.5-14.5); WBC 12.3 10x3/uL (4.8-10.8)
[2019-10-19 06:21] LABS: ANION GAP 11.7 mmol/L (8-16); CALCIUM 8.4 mg/dL (8.5-10.1); CREATININE - SERUM 1.4 mg/dL (0.6-1.3); MAGNESIUM - SERUM 2.2 mg/dL (1.8-2.4); POTASSIUM - SERUM 4.7 mmol/L (3.5-5.1)
--- NOTE | 2019-10-19 08:38 | NUR ---
0700 PT RECIEVED ALERT AN DORIENTED VSS DENIES PAIN LFA PIV PATENT DRESSING CDI, MIJARES DRAINING YELLOW URINE 0730 DR SMITH IN UNIT, STATED PT COPULD HAVE A LIGHT BREAKFAST AND GO TO SALES SUPPORT ADMINISTRATOR APPROX [phone] JELLO AND AM MEDS GIVEN, TOLERATED WELL
[2019-10-19 08:59] LABS: CHOL - HDL RATIO 2.5 ratio (2.3-4.9); LDL-HDL RATIO 1.1 ratio (1.5-3.5)
--- NOTE | 2019-10-19 11:08 | NUR ---
CALLED PHARMACY FOR EVER.
--- NOTE | 2019-10-19 13:10 | NUR ---
ORDERS TO PREOP FROM SUPERVISOR CONCRETE STONE FINISHING
--- NOTE | 2019-10-19 13:52 | NUR ---
PT TO LUBRICATING ENGINEER WITH LUBRICATING ENGINEER STAFF
--- NOTE | 2019-10-19 15:07 | NUR ---
PT RECIEVED BACK TO ROOM FROM DATA PROGRAMMER R GROIN SITE SOFT NO SIGNS OF BLEEDING PULSES EASILY PALPABLE PT ALERT AND ORIENTED AND AWARE TO LAY FLAT/NOT BEND LEG
--- NOTE | 2019-10-19 15:46 | NUR ---
NO SIGNS OF BLEEDING FROM CATH SITE, PULSES REMAIN EASILY PALPABLE, WILL CONTINUE TO MONITOR
--- NOTE | 2019-10-19 16:16 | NUR ---
FIRMNESS NOTED TO R GROIN AFTER PT COUGHING, CALLED AUTOMOTIVE FLEET SUPERVISOR WHO CAME AND ASSESSED SITE, STATED IT DID NOT SEEM TO NEED FEMSTOP, WILL CONTINUE TO MONITOR
--- NOTE | 2019-10-19 16:45 | NUR ---
NO CHANGE IN CATH SITE
--- NOTE | 2019-10-19 19:00 | NUR ---
BEDSIDE REPORT AND SHIFT ASSESSMENT COMPLETE, SEE FLOWSHEET. VSS, NO SIGNS OF DISTRESS NOTED. PT LYING FLAT. R GROIN CATH SITE DRESSING CDI, SITE FIRM, WARM, NO SIGNS OF BLEEDING OR HEMATOMA. PT INSTRUCTED TO LAY FLAT FOR ANOTHER 30 MINUTES, VERBALIZED UNDERSTANDING. L FOREARM PIV PATENT, SEE IV FLOWSHEET. WILL MONITOR.
--- NOTE | 2019-10-19 20:40 | NUR ---
R GROIN SITE FIRM, DRESSING CDI, NO SIGNS OF HEMATOMA NOTED. MEDS GIVEN PER MAR AND TOLERATED BY PT. PT REQUESTING FOOD, APPLESAUCE GIVEN AND TOLERATED. PT DENIES ANY OTHER NEEDS AT THIS TIME. BED ALARM ON, CALL LIGHT IN REACH, WILL MONITOR.
--- NOTE | 2019-10-19 23:00 | NUR ---
REASSESSMENT COMPLETE, SEE FLOWSHEET. VSS, NO SIGNS OF ACUTE DISTRESS NOTED. R GROIN SITE FIRM, DRESSING CDI, NO SIGNS OF BRUISING OR HEMATOMA.
[2019-10-20] VITALS (47 sets, daily range): BP systolic 81–138; BP diastolic 44–67
--- NOTE | 2019-10-20 01:00 | NUR ---
PT SLEEPING. VSS, NO SIGNS OF ACUTE DISTRESS NOTED.
--- NOTE | 2019-10-20 03:00 | NUR ---
REASSESSMENT COMPLETE, SEE FLOWSHEET. PT C/O SORE THROAT, RELIEF WITH SIP OF WATER. R GROIN SITE SOFT, NO SIGNS OF BLEEDING OR HEMATOMA, PEDAL PULSES PALP. VSS.
--- NOTE | 2019-10-20 05:00 | NUR ---
C/O HEADACHE, PRN TYLENOL GIVEN PER OCT.
--- NOTE | 2019-10-20 07:50 | NUR ---
PT ASLEEP. AROUSES TO VOICE. ORIENTED X 4. ON 2L O2 VIA NC. PIV TO LEFT FOREARM WITH AMIODARONE AND LEVOPHED INFUSING. SEE IV FLOWSHEET FOR DRIP RATES. DRESSING TO RIGHT GROIN, BRUISING NOTED, SOFT TO PALPATION. MIJARES CATHETER IN PLACE WITH DARK URINE NOTED. HR 79 A-FIB CONTROLLED. SCD'S ON BOTH LE. SEE FLOWSHEET FOR COMPLETE ASSESSMENT. CALL LIGHT IN REACH. SIDE RAILS UP X 2. BED LOW POSITION. NO FURTHER NEEDS AT THIS TIME. WILL CONTINUE TO MONITOR.
[2019-10-20 08:54] LABS: BASOPHILS 0.1 % (0-2); EOSINOPHILS 1.7 % (0-7); HEMATOCRIT 35.6 % (42.0-54.0); IMMATURE GRANULOCYTES 0.5 % (0-5); LYMPHOCYTES 19.8 % (15-50); MCHC 30.9 g/dL (31.0-37.0); MCV 93.9 fL (80.0-100.0); MEAN PLATELET VOLUME 10.8 fL (7.4-10.4); MONOCYTES 9.7 % (2-11); NEUTROPHILS 68.2 % (40-80); PLATELET COUNT 294 10x3/uL (130-400); RBC 3.79 10x6/uL (4.20-6.10); RDW 14.8 % (11.5-14.5); WBC 12.3 10x3/uL (4.8-10.8)
[2019-10-20 08:57] LABS: ANION GAP 11.5 mmol/L (8-16); CALCIUM 8.4 mg/dL (8.5-10.1); CARBON DIOXIDE 25.4 mmol/L (21.0-32.0); CREATININE - SERUM 1.4 mg/dL (0.6-1.3); MAGNESIUM - SERUM 2.2 mg/dL (1.8-2.4); POTASSIUM - SERUM 4.9 mmol/L (3.5-5.1)
--- NOTE | 2019-10-20 10:08 | NUR ---
PULLED UP AND REPOSITIONED FOR COMFORT. REPORTS PAIN 6/10 ON RIGHT SHOULDER. PILLOW PLACED UNDER RIGHT SHOULDER. TYLENOL GIVEN PER ORDERS. LEVOPHED DRIP TURNED OFF AT 1006. WILL CONTINUE TO MONITOR.
--- NOTE | 2019-10-20 10:18 | NUR ---
DR. YOSVANY NIELSON. WAITING MANAGER PATHOLOGY BACK.
--- NOTE | 2019-10-20 10:38 | NUR ---
HR IN 40S-50S A-FIB. AMIODARONE DC'D PER DR. BAR'S ORDERS.
--- NOTE | 2019-10-20 11:31 | NUR ---
RESTING COMFORTABLY IN BED. STATES THAT HIS SHOULDER FEELS MUCH BETTER. HR IN 50S A-FIB CONTROLLED. L-FOREARM PIV SALINE LOCKED. PT DENIES OTHER NEEDS AT THIS TIME. WILL CONTINUE TO MONITOR.
--- NOTE | 2019-10-20 12:14 | NUR ---
PULL UP IN BED AND REPOSITIONED. MEAL TRAY DELIVERED AND SET UP. NO FURTHER NEEDS AT THIS TIME.
--- NOTE | 2019-10-20 13:06 | NUR ---
HR BRADYCARDIC FROM 30S-50. BP 92/52. EKG OBTAINED. DR. SMITH NOTIFIED. NO NEW ORDERS AT THIS TIME. WILL CONTINUE TO MONITOR.
--- NOTE | 2019-10-20 13:26 | NUR ---
Nutrition Follow-up: Pt sleeping soundly at time of visit. No family at BS. Chart reviewed. Diet: Cardiac Wt: 190.6# (10/20); 186.2# (10/19) Labs reviewed Meds noted: Remeron, Protonix -Continue current diet as tolerated. -Offer nutrition supplements if avg PO intake <50%. -Monitor wt. -RD following.
--- NOTE | 2019-10-20 14:00 | NUR ---
COMPLETE BATH GIVEN. PT TOLERATED WELL. COMPLETE LINEN CHANGE AND CLEAN GOWN PROVIDED. ORAL CARE PRODUCTS PROVIDED. PULLED UP AND REPOSTIONED FOR COMFORT. NO FURTHER NEEDS AT THIS TIME. WILL CONTINUE TO MONITOR.
--- NOTE | 2019-10-20 15:15 | NUR ---
RE-ASSESSMENT COMPLETED. NO ACUTE CHANGES FROM PREVIOUS ASSESSMENT NOTED. RESTING COMFORTABLY IN BED. DENIES PAIN AT THIS TIME. WILL CONTINUE TO MONITOR.
--- NOTE | 2019-10-20 17:00 | NUR ---
MEAL TRAY DELIVERED AND SET UP. NO FURTHER NEEDS AT THIS TIME.
--- NOTE | 2019-10-20 18:35 | NUR ---
DR. STAPLES AT BEDSIDE. MADE AWARE OF BLOODY URINE. WANTS UA REPEATED TOMORROW. ALSO NOTIFIED THAT PATIENT REQUESTED MELATONIN AND REMERON TO HELP HIM SLEEP AT NIGHT.
--- NOTE | 2019-10-20 19:00 | NUR ---
BEDSIDE REPORT AND SHIFT ASSESSMENT COMPLETE, SEE FLOWSHEET. VSS, NO SIGNS OF ACUTE DISTRESS NOTED. PT ALERT AND ORIENTED, SPEECH CLEAR. R GROIN CATH SITE SOFT, BRUSING NOTED. PEDAL PULSES PALP. L FOREARM PIV PATENT, SALINE LOCKED. PT DENIES NEEDS AT THIS TIME. BED IN LOW POSITION, CALL LIGHT IN REACH, WILL MONITOR.
--- NOTE | 2019-10-20 21:00 | NUR ---
MEDS GIVEN PER MAR AND TOLERATED BY PT. PT REQUESTING COUGH MEDICINE, STATES HE TAKES IN AT THE SHELTER. WILL PASS ALONG IN REPORT TO NOTIFY IN AM.
--- NOTE | 2019-10-20 23:00 | NUR ---
REASSESSMENT COMPLETE, SEE FLOWSHEET.
[2019-10-21] VITALS (24 sets, daily range): BP systolic 93–123; BP diastolic 48–66
--- NOTE | 2019-10-21 01:00 | NUR ---
PT SLEEPING. VSS.
--- NOTE | 2019-10-21 03:00 | NUR ---
REASSESSMENT COMPLETE. VSS, NO SIGNS OF ACUTE DISTRESS NOTED. R GROIN CATH SITE SOFT, BRUISED. BED IN LOW POSITION AND CALL LIGHT IN REACH.
[2019-10-21 05:49] LABS: BILIRUBIN NEGATIVE (NEGATIVE); GLUCOSE NEGATIVE (NEGATIVE); KETONE NEGATIVE (NEGATIVE); NITRITE NEGATIVE (NEGATIVE); SPECIFIC GRAVITY 1.015 (1.005-1.020); UROBILINOGEN NORMAL (NORMAL)
[2019-10-21 05:50] LABS: BACTERIA FEW /hpf (NEGATIVE); EPITHELIAL CELLS 0-5 /hpf (0-5); WHITE CELLS - URINE 0-5 /hpf (NEGATIVE)
[2019-10-21 06:27] LABS: BASOPHILS 0.1 % (0-2); HEMATOCRIT 32.2 % (42.0-54.0); HEMOGLOBIN 9.9 g/dL (13.5-17.5); IMMATURE GRANULOCYTES 0.5 % (0-5); LYMPHOCYTES 22.1 % (15-50); MCH 28.5 pg (26.0-34.0); MCHC 30.7 g/dL (31.0-37.0); MCV 92.8 fL (80.0-100.0); MEAN PLATELET VOLUME 10.8 fL (7.4-10.4); MONOCYTES 11.3 % (2-11); PLATELET COUNT 249 10x3/uL (130-400); RBC 3.47 10x6/uL (4.20-6.10); RDW 14.8 % (11.5-14.5); WBC 10.9 10x3/uL (4.8-10.8)
[2019-10-21 06:58] LABS: ANION GAP 11.7 mmol/L (8-16); CALCIUM 8.1 mg/dL (8.5-10.1); CARBON DIOXIDE 25.1 mmol/L (21.0-32.0); CREATININE - SERUM 1.4 mg/dL (0.6-1.3); MAGNESIUM - SERUM 2.1 mg/dL (1.8-2.4); POTASSIUM - SERUM 4.8 mmol/L (3.5-5.1)
--- NOTE | 2019-10-21 07:30 | NUR ---
SHIFT REPORT RECEIVED. PT ASLEEP. AROUSES TO VOICE. DENIES ANY PAIN AT THIS TIME. ON ROOM AIR. NO FEVER NOTED. HR IN 50S A-FIB CONTROLLED. PIV TO L-FOREARM S.L. PATENT. MIJARES CATHETER IN PLACE. RIMA URINE NOTED. R-GROIN DRESSING IN PLACE, BRUISING NOTED. PULLED UP AND REPOSITIONED FOR COMFORT. MEAL TRAY DELIVERED AND SET UP. DENIES OTHER NEEDS AT THIS TIME. WILL CONTINUE TO MONITOR.
--- NOTE | 2019-10-21 09:16 | NUR ---
AM MEDS GIVEN. PT UP IN CHAIR. DENIES OTHER NEEDS AT THIS TIME. WILL CONTINUE TO MONITOR.
--- NOTE | 2019-10-21 11:20 | NUR ---
AWAKE AND ALERT. UP IN CHAIR. HR 50S A-FIB CONTROLLED. NO FEVER NOTED. NO ACUTE CHANGES FROM PREVIOUS ASSESSMENT. WILL CONTINUE TO MONITOR.
--- NOTE | 2019-10-21 12:15 | NUR ---
DYLLAN HALL'D AT THIS TIME PER DR. SUTTON'S ORDERS. URINAL PROVIDED. MEAL TRAY DELIVERED AND SET UP. WILL CONTINUE TO MONITOR.
--- NOTE | 2019-10-21 14:30 | NUR ---
CHG BATH GIVEN. PT BATHED SELF WITH MINIMAL ASSISTANCE. COMPLETE LINEN CHANGE PROVIDED. AMBULATED BACK TO BED. NO FURTHER NEEDS AT THIS TIME. WILL CONTINUE TO MONITOR.
--- NOTE | 2019-10-21 17:00 | NUR ---
MEAL TRAY DELIVERED AND SET UP. WARM BLANKET PROVIDED. NO FURTHER NEEDS AT THIS TIME. WILL CONTINUE TO MONITOR.
--- NOTE | 2019-10-21 19:30 | NUR ---
REPORT REC'D AND CARE ASSUMED, PT RESTING IN BED ON ROOM AIR EYES CLOSED, AWAKENS TO VERBAL STIMULI, ORIENTED X 4, LEFT FOREARM PIV SALINE LOCKED, MAEE, RIGHT GROIN DRSG CDI, BRUISING NOTED AT PREVIOUS CATH SITE, NO HEMATOMA, PPP, PT DENIES PAIN, STATES " I WOULD LIKE MY MEDICINE AT 8 SO I CAN GO TO SLEEP", INFORMED PT I WOULD BRING HIS MEDCIATION EARLY REQUESTED, SR UP X 2, BED IN LOW POSITION.
--- NOTE | 2019-10-21 20:10 | NUR ---
EVEING MEDS GIVEN EARLY REQUESTED, PT REPOSITIONED UP IN BED FOR COMFORT, VSS, WILL MONITOR FOR CHANGES.
--- NOTE | 2019-10-21 22:00 | NUR ---
URINAL EMPTIED OF 200CC CLEAR YELLOW URINE, PT RESTING QUIETLY IN BED, PT DENIES PAIN OR NEEDS, SR UP X 2, BED IN LOW POSITION, CALL LIGHT IN REACH.
--- NOTE | 2019-10-21 23:00 | NUR ---
REASSESSMENT COMPLETED, PT RESTING IN BED EYES CLOSED, VSS, DENIES NEEDS, SR UP X 2, BED IN LOW POSITION, CALL LIGHT IN REACH.
[2019-10-22] VITALS (18 sets, daily range): BP systolic 95–118; BP diastolic 46–71
--- NOTE | 2019-10-22 01:30 | NUR ---
PT AWAKE, COMPLAINS OF BEING COLD, WARM BLANKET PROVIDED, DENIES FURTHER NEEDS.
--- NOTE | 2019-10-22 03:00 | NUR ---
REASSESSMENT COMPLETED, NO CHANGES FROM PREVIOUS ASSESSMENT, WILL CONT TO MONITOR FOR CHANGES.
--- NOTE | 2019-10-22 05:00 | NUR ---
NO CHANGES IN STATUS AT THIS TIME.
[2019-10-22 06:03] LABS: BASOPHILS 0.2 % (0-2); EOSINOPHILS 4.2 % (0-7); HEMATOCRIT 31.9 % (42.0-54.0); HEMOGLOBIN 9.9 g/dL (13.5-17.5); IMMATURE GRANULOCYTES 0.2 % (0-5); LYMPHOCYTES 25.1 % (15-50); MCH 28.6 pg (26.0-34.0); MCV 92.2 fL (80.0-100.0); MEAN PLATELET VOLUME 11.2 fL (7.4-10.4); MONOCYTES 11.8 % (2-11); NEUTROPHILS 58.5 % (40-80); PLATELET COUNT 260 10x3/uL (130-400); RBC 3.46 10x6/uL (4.20-6.10); RDW 14.8 % (11.5-14.5); WBC 9.4 10x3/uL (4.8-10.8)
[2019-10-22 06:24] LABS: ANION GAP 9.5 mmol/L (8-16); CALCIUM 8.2 mg/dL (8.5-10.1); CARBON DIOXIDE 27.2 mmol/L (21.0-32.0); CREATININE - SERUM 1.5 mg/dL (0.6-1.3); MAGNESIUM - SERUM 2.1 mg/dL (1.8-2.4); POTASSIUM - SERUM 4.7 mmol/L (3.5-5.1)
[2019-10-22] MEDS ORDERED: DEPAKOTE ER250 MG PO (09:45)
--- NOTE | 2019-10-22 12:18 | MORECARE ---
CASE MANAGEMENT DISCHARGE SUMMARY PATIENT: XIN WADE UNIT: [id number] ADM DATE: 10/18/19 AGE: 84 : 35 SEX: M ROOM/BED: D.[facility] AUTHOR: LOLA,DOC PHYSICIAN: REFERRING PHYSICIAN: JULIUS BARDALES MD DATE OF SERVICE: 10/22/19 Discharge Plan Patient Name: XIN WADE Facility: [facility]:[place] : 1935 Planned Disposition: Anticipated Discharge Date: Discharge Date: Expected LOS: Initial Reviewer: [email or web address] Initial Review Date: 10/18/2019 Generated: 10/22/19 1:18 pm DCP- Discharge Planning Updated by [email or web address]: Lo Chanel on 10/18/19 6:[address] Patient Name: XIN WADE Admission Status: ER Accout number: [id number] Admission Date: 10-18-2019 : 1935 Admission Diagnosis: Attending: JULIUS BARDALES Current LOS: 1 Anticipated DC Date: Planned Disposition: Primary Insurance: [facility] Discharge Planning Comments: CM met with patient to complete initial dc planning assessment. CM educated patient on the CM role and verbal consent given by patient to complete assessment. CM verified patient's address, phone number, and emergency contact phone numbers. Patient is a resident [facility]. At discharge patient plans to return to the [facility] and feels this is a safe discharge. YING form signed by patient for return to [facility]. Signed form placed in chart and signed form given to patient. Patient denied further known discharge needs at this time. . Transportation provider at discharge will be [facility] . CM will continue to follow and will assist as needed with dc plans/needs. Tar Pot Man: Lo Chanel DCPIA - Discharge Planning Initial Assessment Updated by [email or web address]: Lo Chanel on 10/18/19 7:22 pm * Is the patient Alert and Oriented? Yes * How many steps to enter\exit or inside your home? * PCP [facility] * Pharmacy [facility] * Preadmission Environment Assisted Detention * Facility Name [facility] * ADLs Partial Dependent * Partial ADLs (Assistance needed) Ambulation Bathing Dressing Eating Medication Management Toileting Transfers * List name and contact numbers for known caregivers / representatives who currently or will assist patient after discharge: Jania Parson - [phone] * Verbal permission to speak to the caregivers and representatives has been obtained from the patient. Yes * Community resources currently utilized None * Additional services required to return to the preadmission environment? No * Can the patient safely return to the preadmission environment? Yes * Has this patient been hospitalized within the prior 30 days at any hospital? No External Providers External Provider: [facility] Next Contact Date: Service Request Date: Service Type: Resolution: Reviewer: Comments: Coverage Notice Reviewer: [email or web address] - Lo Chanel Notice Issued Date-Time: 10/21/2019 19:27 Notice Type: Patient Choice Letter Notice Delivered To: Patient Relationship to Patient: Self Hardware Trainer Name: Delivery Method: HAND - Hand Delivered Mariangel Days: Prior Verbal Notification: Recipient Understood Notice: Yes Recipient Signature: Yes Med Rec Note Co-signed by Attending: Coverage Notice Comment: [facility] DP export: 10/18/19 6:36 p Patient Name: XIN WADE Page [id number] at 1218 All edits/amendments must be made on the electronic document DICTATION DATE: 10/22/191217 PRINTING AGENT: TESFAYE 10/22/198 RPT#: [id number] DC DATE: STATUS: ADM IN [facility] [address] [place] [address] END OF REPORT
--- NOTE | 2019-10-22 13:16 | NUR ---
Nutrition Follow-up: Eating well. No BM but reports flatus. Drinking Ensure PRN. No s/s of aspiration per ST. Diet: Cardiac PO intake: 80-100% Wt: 191.8# (10/21); 190.6# (10/20) Last BM: 10/17 per chart Labs noted: Ca 8.2, GFR 47 Meds noted: Remeron, Protonix -Continue current diet as tolerated. -Monitor wt. -RD following.
--- NOTE | 2019-10-22 14:42 | NUR ---
OT NOTE: PT REPORTED THAT HE WAS FEELING NAUSEATED EARLIER IN THE AM.. HOWEVER, HE WAS AGREEABLE TO GET UP WITH THERAPY. ABLE TO WASH FACE AND HANDS WITH SET UP; FEEDING WITH SET UP; BED MOB WITH MIN ASSIST; MOD ASSIST TO ÁLVARO SOCKS; ABLE TO AMB GREATER THAN 150 FT WITH RW AND MIN ASSIST. LESS SOB NOTED TODAY DURING AMBULATION VS YESTERDAY; TRANSFER TO CHAIR WITH MIN ASSIST. EDUCATED PT ON UE/LE EXS TO PERFORM WHILE SITTING UP IN CHAIR CORA RENE, OTR/L [phone]
--- NOTE | 2019-10-22 16:31 | NUR ---
1530-DR SUTTON AT [facility] AND SPOKE WITH PT -STATED HAS NOT HAD BOWEL MOVEMENT IN MORE THEN 5 DAYS-ORDERS RECIEVED AND NOTED
--- NOTE | 2019-10-22 16:33 | MORECARE ---
CASE MANAGEMENT DISCHARGE SUMMARY PATIENT: XIN WADE UNIT: [id number] ADM DATE: 10/18/19 AGE: 84 : 35 SEX: M ROOM/BED: D.06 AUTHOR: LOLA,DOC PHYSICIAN: REFERRING PHYSICIAN: JULIUS BARDALES MD DATE OF SERVICE: 10/22/19 Discharge Plan Patient Name: XIN WADE Facility: [facility]:[place] : 1935 Planned Disposition: Anticipated Discharge Date: Discharge Date: Expected LOS: Initial Reviewer: [email or web address] Initial Review Date: 10/18/2019 Generated: 10/22/19 5:32 pm Comments DCP- Discharge Planning Updated by [email or web address]: Lo Chanel on 10/22/19 3:[address] CM faxed updates to [facility] and then called [facility] to ask if patient gets discharge orders if they can take him back today. She stated "Yes" that it would be after 4 pm before they could pick him up. CM notified nursing staff. CM spoke with Dr. Hill and he stated that the patient needed to have BM before he is discharged. CM called [facility] with [facility] and she stated that patient can be admitted back to [facility] over weekend to just call facility and fax update records and discharge to [phone]. CM will continue to follow and assist as needed with discharge planning / needs. DCP- Discharge Planning Updated by [id number]: Lo Chanel on 10/18/19 6:[address] Patient Name: XIN WADE Admission Status: ER Accout number: [id number] Admission Date: 10-18-2019 : 1935 Admission Diagnosis: Attending: JULIUS BARDALES Current LOS: 1 Anticipated DC Date: Planned Disposition: Primary Insurance: [facility] Discharge Planning Comments: CM met with patient to complete initial dc planning assessment. CM educated patient on the CM role and verbal consent given by patient to complete assessment. CM verified patient's address, phone number, and emergency contact phone numbers. Patient is a resident [facility]. At discharge patient plans to return to the [facility] and feels this is a safe discharge. YING form signed by patient for return to [facility]. Signed form placed in chart and signed form given to patient. Patient denied further known discharge needs at this time. . Transportation provider at discharge will be [facility] . CM will continue to follow and will assist as needed with dc plans/needs. Reject Opener And Filler: Lo Chanel DCPIA - Discharge Planning Initial Assessment Updated by [email or web address]: Lo Chanel on 10/18/19 7:22 pm * Is the patient Alert and Oriented? Yes * How many steps to enter\\exit or inside your home? * PCP [facility] * Pharmacy [facility] * Preadmission Environment [facility] * Facility Name [facility] * ADLs Partial Dependent * Partial ADLs (Assistance needed) Ambulation Bathing Dressing Eating Medication Management Toileting Transfers * List name and contact numbers for known caregivers / representatives who currently or will assist patient after discharge: Jania Parson - [phone] * Verbal permission to speak to the caregivers and representatives has been obtained from the patient. Yes * Community resources currently utilized None * Additional services required to return to the preadmission environment? No * Can the patient safely return to the preadmission environment? Yes * Has this patient been hospitalized within the prior 30 days at any hospital? No Coverage Notice Reviewer: [id number] - Lo Chanel Notice Issued Date-Time: 10/21/2019 19:27 Notice Type: Patient Choice Letter Notice Delivered To: Patient Relationship to Patient: Self Mainframe Consultant Name: Delivery Method: HAND - Hand Delivered Mariangel Days: Prior Verbal Notification: Recipient Understood Notice: Yes Recipient Signature: Yes Med Rec Note Co-signed by Attending: Coverage Notice Comment: THE [facility] Last DP export: 10/22/19 11:18 a Patient Name: XIN WADE Page 13768 at 1633 All edits/amendments must be made on the electronic document DICTATION DATE: 10/22/191631 DATA REVIEW SPECIALIST: TESFAYE 10/22/191631 RPT#: [id number] DC DATE: STATUS: ADM IN [facility] [address] [place] [address] END OF REPORT
--- NOTE | 2019-10-22 19:15 | NUR ---
REPORT REC'D AND CARE ASSUMED, REC'D PT AWAKE, ALERT, AND ORIENTED ON ROOM AIR, ASSISTED UP TO BATHROOM, INSTRUCTED TO CALL FOR ASSISTANCE.
--- NOTE | 2019-10-22 19:25 | NUR ---
PT UNSUCCESSFUL IN BATHROOM, ASSISTED OVER TO RECLINER AT THIS TIME, GAIT STEADY WITH MINIMAL ASSISTANCE, LEFT FOREARM PIV SALINE LOCKED, RIGHT GROIN DRSG TO PREVIOUS CATH SITE CDI, BRUISING AT SITE NOTED, PPP, BEDSIDE TABLE AND CALL LIGHT IN REACH.
--- NOTE | 2019-10-22 19:45 | NUR ---
PT ASSISTED TO BATHROOM, INSTRUCTED TO PULL CORD WHEN READY TO RETURNE TO CHAIR.
--- NOTE | 2019-10-22 19:50 | NUR ---
PT ASSISTED BACK TO CHAIR, REPORTS ONLY PASSING GAS, MILK OF MAGNESIA DOSE GIVEN AT THIS TIME, WILL MONITOR FOR CHANGES.
--- NOTE | 2019-10-22 21:00 | NUR ---
PT ASSISTED TO BATHROOM
--- NOTE | 2019-10-22 21:10 | NUR ---
EVENING MEDS GIVEN ORDERED, PT REMAINS UP IN CHAIR, HAS BEEN BACK TO THE BATHROOM X 2 WITH LITTLE RESULT, WILL MONITOR FOR CHANGES.
--- NOTE | 2019-10-22 23:00 | NUR ---
REASSESSMENT COMPLETED, PT RESTING IN BED EYES CLOSED, VSS, WILL CONTINUE TO MONITOR FOR CHANGES.
[2019-10-23] VITALS (49 sets, daily range): BP systolic 69–112; BP diastolic 37–66
--- NOTE | 2019-10-23 01:00 | NUR ---
NO CHANGES IN STATUS AT THIS TIME.
--- NOTE | 2019-10-23 03:15 | NUR ---
PT ASSISTED UP TO BATHROOM
--- NOTE | 2019-10-23 03:20 | NUR ---
PT ASSISTED TO RECLINER, SMALL AMOUNT OF LOOSE BROWN STOOL NOTED, CALL LIGHT IN REACH.
--- NOTE | 2019-10-23 03:40 | NUR ---
PT ASSISTED BACK TO BATHROOM, SMALL AMOUNT OF LOOSE BROWN STOOL NOTED, PT ASSISTED BACK TO BED AT THIS TIME, PT COMPLAINS OF ABD CRAMPING AND FEELING NAUSEATED, 4MG ZOFRAN GIVEN SLOW IVP FOR NAUSEA, REASSESSMENT COMPLETED, PT DENIES FURTHER NEEDS, VSS, WILL MONITOR CLOSELY FOR CHANGES.
--- NOTE | 2019-10-23 04:00 | NUR ---
PT SITTING UP IN RECLINER DOZING, DENIES NEEDS ,CALL LIGHT IN REACH.
--- NOTE | 2019-10-23 04:30 | NUR ---
ASSISTED UP TO BATHROOM AT THIS TIME, INSTRUCTED TO CALL FOR ASSISTANCE BEFORE RETURNING TO BED OR CHAIR, PT VERBALIZES UNDERSTANDING.
--- NOTE | 2019-10-23 04:45 | NUR ---
PT ASSISTED BACK TO RECLINER PER REQUEST, CALL LIGHT IN REACH, ICE WATER PROVIDED, WILL CONT CURRENT POC
--- NOTE | 2019-10-23 05:30 | NUR ---
PT ASSISTED UP TO BATHROOM WITH MINIMAL RESULT, ASSISTED BACK TO BED AND REPOSITIONED UP IN BED FOR COMFORT, SR UP X 2 , CALL LIGHT IN REACH.
[2019-10-23 05:31] LABS: BASOPHILS 0.2 % (0-2); HEMATOCRIT 31.4 % (42.0-54.0); HEMOGLOBIN 9.7 g/dL (13.5-17.5); IMMATURE GRANULOCYTES 0.5 % (0-5); LYMPHOCYTES 20.8 % (15-50); MCH 28.4 pg (26.0-34.0); MCHC 30.9 g/dL (31.0-37.0); MCV 92.1 fL (80.0-100.0); MEAN PLATELET VOLUME 10.8 fL (7.4-10.4); MONOCYTES 9.9 % (2-11); NEUTROPHILS 65.6 % (40-80); PLATELET COUNT 294 10x3/uL (130-400); RBC 3.41 10x6/uL (4.20-6.10); RDW 14.8 % (11.5-14.5); WBC 10.3 10x3/uL (4.8-10.8)
[2019-10-23 05:44] LABS: ANION GAP 12.2 mmol/L (8-16); CALCIUM 8.3 mg/dL (8.5-10.1); CARBON DIOXIDE 24.8 mmol/L (21.0-32.0); CREATININE - SERUM 1.4 mg/dL (0.6-1.3); MAGNESIUM - SERUM 2.3 mg/dL (1.8-2.4)
--- NOTE | 2019-10-23 08:27 | NUR ---
RECIEVED AWAKE AND ALERT-ON BEDPAN-NO RESULTS-NOTED R GROIN HEMATOMA-SOFT TO TOUCH-BED TO BED AT GROIN LINE 0815-KUB DONE-SMALL AMOUNT OF DIARRHEA STOOL SENT FOR OCCULT 0820-PLACED ON BEDPAN-
--- NOTE | 2019-10-23 19:20 | NUR ---
REPORT REC'D AND CARE ASSUMED, REC'D PT RESTING IN BED EYES CLOSED, RESP EVEN AND UNLABORED, O2 @ 2 LITERS VIA NC, RIGHT FOREARM PIV WITH EXTENDSION SET NS @ 2OOCC/HR, DOPAMINE @ 3MCG/KG/MIN, AND LEVOPHED @ 5MCG/MIN, PT EASILY AWAKENS, RIGHT GROIN DRSG CDI TO PREIVOUS CATH SITE, BRUISING NOTED, SOFT TO TOUCH, PP WEAKLY PALPABLE, SCDS INTACT, SR UP X 2, BED IN LOW POSITION, CALL LIGHT IN REACH.
--- NOTE | 2019-10-23 22:20 | NUR ---
DR. SUTTON CALLED FOR UPDATE, UPDATE PROVIDED AND ORDERS TO PLACE MIJARES CATHETER REACEIVED.
[2019-10-23 23:09] LABS: BILIRUBIN NEGATIVE (NEGATIVE); GLUCOSE NEGATIVE (NEGATIVE); KETONE NEGATIVE (NEGATIVE); NITRITE NEGATIVE (NEGATIVE); UROBILINOGEN NORMAL (NORMAL)
--- NOTE | 2019-10-23 23:10 | NUR ---
PT AWAKE, REORIENTS EASILY TO TIME OF DAY, STATES " I FEEL SOME BETTER ", CM-UCAF @ 112, BP 92/47, EXPLAINED TO PT MD HAD ORDERED MIJARES CATHETER FOR ACCURATE I AND O'S, PT VERBALIZES UNDERSTANDING AND IS AGREEABLE, 18 [address] MIJARES PLACED USING ASEPTIC TECHNIQUE, IMMEDIATE RETURN OF 350CC CONCENTRATED URINE, TOLERATED WELL, PT REPOSITIONED AND LINENS STRAIGHTENED, EVENING MEDS ADMINSTERED, LEVOPHED AND DOPAMINE CONTINUE, WILL MONITOR CLOSELY FOR CHANGES.
[2019-10-24] VITALS (93 sets, daily range): BP systolic 65–111; BP diastolic 37–58
--- NOTE | 2019-10-24 00:46 | NUR ---
PT RESTING EYES CLOSED, RESP EVEN AND UNLABORED, BP STABLE ON LEVOPHED, MIJARES PATENT DRAINING YELLOW URINE, WILL CONT TO MONITOR FOR CHANGES.
--- NOTE | 2019-10-24 03:00 | NUR ---
REASSESSMENT COMPLETED, PT WOKE UP HOLLERING OUT, REORIENTED TO PLACE AND TIME, PT STATES "I WAS CHOKING", REPOSITIONED UP IN BED AND ICE WATER PROVIDED, PRODUCTIVE SOUNDING COUGH NOTED, LEVOPHED AND DOPAMINE CONTINUE UNCHANGED, WILL CONT TO MONITOR FOR CHANGES.
--- NOTE | 2019-10-24 05:15 | NUR ---
LAB AT FOR AM LAB DRAW, FRESH WATER PROVIDED TO PT, PT DENIES FURTHER NEEDS, SR UP X 2, CALL LIGHT IN REACH.
[2019-10-24 06:05] LABS: BASOPHILS 0.2 % (0-2); EOSINOPHILS 1.4 % (0-7); HEMATOCRIT 30.6 % (42.0-54.0); HEMOGLOBIN 9.4 g/dL (13.5-17.5); IMMATURE GRANULOCYTES 0.2 % (0-5); LYMPHOCYTES 16.1 % (15-50); MCH 28.7 pg (26.0-34.0); MCHC 30.7 g/dL (31.0-37.0); MCV 93.6 fL (80.0-100.0); MONOCYTES 12.5 % (2-11); NEUTROPHILS 69.6 % (40-80); PLATELET COUNT 295 10x3/uL (130-400); RBC 3.27 10x6/uL (4.20-6.10); RDW 14.8 % (11.5-14.5); WBC 12.8 10x3/uL (4.8-10.8)
[2019-10-24 06:29] LABS: ALBUMIN 2.4 g/dL (3.4-5.0); ANION GAP 10.1 mmol/L (8-16); BILIRUBIN - TOTAL 0.36 mg/dL (0.2-1.3); CARBON DIOXIDE 25.9 mmol/L (21.0-32.0); CREATININE - SERUM 1.4 mg/dL (0.6-1.3); PROTEIN - SERUM 6.1 g/dL (6.4-8.2)
--- NOTE | 2019-10-24 10:35 | NUR ---
0700-NOTED UCAF ON MONITOR-R PERIPHERAL INFUSING DOPAMINE AT 3MCG-LEVOPHED 7MCG 1015-DR BARDALES AT BEDSIDE-IV N/S INCREASED TO 200ML/H FOR 1L
--- NOTE | 2019-10-24 14:03 | NUR ---
1045-DR HAIRSTON SPOKE WITH PT-NURSE PRESENT-PT LIVELY AND AWAKE -STATES I FEEL PRETTY GOOD TODAY 1245-CALED NURSE AND STATED ARMS SHAKEY "ALL DAY" CAN'T BREATH-RR 16 AND SAT 100%-QUESTIONED PT WHY HE DIDN'T INFORM DR AT TIME--STATED HE DID-NO RECALL OF PT INFORMING DR BARDALES-NOTED ON LEVOPHED AND DOPAMINE IV MEDICINES THAT SHAKING IS A SIDE EFFECT-NOTED COARSE RHONCHI-N/S FLUID DECREASED TO 25ML/H-ENCOURAGED PT TO COUGH HARD-CLEAR SADIE BREATH SOUNDS
--- NOTE | 2019-10-24 21:02 | NUR ---
1900 ASSESSMENT DONE SEE FLWO SHEET VSS WILL CONTINUE TO MONITOR. 2100 MEDS GIVEN PER OCT. VSS WILL CONTINUE TO MONITOR.
[2019-10-25] VITALS (25 sets, daily range): BP systolic 81–119; BP diastolic 44–79
--- NOTE | 2019-10-25 01:00 | NUR ---
PT RESTING IN BED VSS NO SIGNS OF ACUTE DISTRESS NOTED WILL CONTINUE TO MONITOR.
[2019-10-25 05:01] LABS: HEMATOCRIT 27.4 % (42.0-54.0); HEMOGLOBIN 8.6 g/dL (13.5-17.5); MCH 29.4 pg (26.0-34.0); MCHC 31.4 g/dL (31.0-37.0); MCV 93.5 fL (80.0-100.0); MEAN PLATELET VOLUME 11.1 fL (7.4-10.4); PLATELET COUNT 283 10x3/uL (130-400); RBC 2.93 10x6/uL (4.20-6.10); RDW 16.5 % (11.5-14.5); WBC 11.1 10x3/uL (4.8-10.8)
[2019-10-25 05:05] LABS: ALBUMIN 2.1 g/dL (3.4-5.0); ANION GAP 8.9 mmol/L (8-16); BILIRUBIN - TOTAL 0.29 mg/dL (0.2-1.3); CALCIUM 7.8 mg/dL (8.5-10.1); CARBON DIOXIDE 24.8 mmol/L (21.0-32.0); CREATININE - SERUM 1.2 mg/dL (0.6-1.3); POTASSIUM - SERUM 4.7 mmol/L (3.5-5.1); PROTEIN - SERUM 5.1 g/dL (6.4-8.2)
[2019-10-25 07:25] LABS: EOSINOPHILS 2 % (0-7); LYMPHOCYTES 22 % (15-50); MONOCYTES 15 % (2-11); NEUTROPHILS 59 % (40-80); PLATELET ESTIMATE NORMAL
[2019-10-25 11:11] LABS: ANION GAP 7.8 mmol/L (8-16); CARBON DIOXIDE 24.9 mmol/L (21.0-32.0); CREATININE - SERUM 1.3 mg/dL (0.6-1.3); POTASSIUM - SERUM 4.7 mmol/L (3.5-5.1)
--- NOTE | 2019-10-25 14:01 | NUR ---
Nutrition Follow-up: Pt reports "just ain't hungry". PO intake decreased over the weekend. Noted I/Os (+3570 cc on 10/24). Will drink Ensure. Diet: Cardiac PO intake: 15-25% (10/24) Wt: 218# (10/25); 191.8# (10/21); 170# (10/18) Last BM: 10/22 per pt Labs noted: Ca 7.8, Alb 2.1 Meds noted: Protonix, Remeron -+Ensure with meals. -Monitor wt. -RD following.
--- NOTE | 2019-10-25 18:23 | NUR ---
OT NOTE: PT STATED HE HAS BEEN VOMITING TODAY. MAC NOTIFIED NURSING. NURSING ENCOURAGED THERAPY TO CONTINUE. PT COMPLETED SUPINE TO SIT WITH MIN A. PT COMPLETED ADL MOB WITH RW AND MIN A. PT COMPLETED FACE HYGIENE WITH SET UP. [phone] THANK YOU,ESTEFANIA CARLTON
--- NOTE | 2019-10-25 19:05 | NUR ---
RECIVED REPORT AT BEDSIDE. PT IS A&OX4 SITTING UP IN THE CHAIR. HE VOICES THAT HE WUOLD LIKE TO BE HELPED BACK IN BED SO HE CAN GO TO SLEEP. HE ALSO ASKED "CAN YOU BRING MY ME 0900 MEDS AT 0800 INSTEAD, IF I GET THEM ALITTL EARLIER THAN I WILL SLEEP BETTER". I VOICED THAT I COULD DO THAT. NO OTHER C/O AT THIS TIME. VITAL SIGNS ARE STABLE. HELPED PT BACK INTO BED C MINIMAL ASSIST. SCDS WERE PLACED BACK ON, BED IS LOW,SIDE RAILSX2,CALL LIGHT WIHTIN REACH. WILL DO FULL ASSESSMENT AND DOCUMENT
--- NOTE | 2019-10-25 21:45 | NUR ---
PT IS RESTING IN BED WITH EYES CLOSED. VITAL SIGNS ARE STABLE. BED IS LOW,SIDE RAILSX2,CALL LGITH WITHIN REACH .WILL CONTINUE TO MONITOR
[2019-10-26] VITALS (13 sets, daily range): BP systolic 97–117; BP diastolic 44–77
--- NOTE | 2019-10-26 00:15 | NUR ---
PT IS RESTING IN BED WITH EYES CLOSED. VITAL SIGNS ARE STABLE. BED IS LOW,SIDE RAILSX2,CALL LIGHT WITHIN REACH. WILL CONTINUE TO MONITOR
--- NOTE | 2019-10-26 02:00 | NUR ---
PT IS RESTING IN BED WITH EYES CLOSED. VITAL SIGNS ARE STABLE. BED IS LOW,SIDE RAISLX2,CALL LIGTH WITHIN REACH. WILL CONTINUE TO MONITOR
--- NOTE | 2019-10-26 04:32 | NUR ---
pt is resting in bed with eyes closed. administering med per order. see MAR. pt voices no concern and drift back to sleep. vital signs are stable. bed is low,side railsx2,call light within reach. will conintue to monitor
[2019-10-26 04:58] LABS: BASOPHILS 0.1 % (0-2); EOSINOPHILS 0.8 % (0-7); HEMATOCRIT 28.4 % (42.0-54.0); HEMOGLOBIN 8.8 g/dL (13.5-17.5); IMMATURE GRANULOCYTES 0.4 % (0-5); LYMPHOCYTES 10.9 % (15-50); MCH 28.6 pg (26.0-34.0); MCV 92.2 fL (80.0-100.0); MEAN PLATELET VOLUME 10.2 fL (7.4-10.4); NEUTROPHILS 75.8 % (40-80); PLATELET COUNT 279 10x3/uL (130-400); RBC 3.08 10x6/uL (4.20-6.10); RDW 15.1 % (11.5-14.5)
[2019-10-26 05:01] LABS: WBC 14.1 10x3/uL (4.8-10.8)
[2019-10-26 05:12] LABS: ALBUMIN 2.1 g/dL (3.4-5.0); ANION GAP 12.3 mmol/L (8-16); BILIRUBIN - TOTAL 0.4 mg/dL (0.2-1.3); CARBON DIOXIDE 24.2 mmol/L (21.0-32.0); CREATININE - SERUM 1.2 mg/dL (0.6-1.3); POTASSIUM - SERUM 4.5 mmol/L (3.5-5.1); PROTEIN - SERUM 5.6 g/dL (6.4-8.2)
--- NOTE | 2019-10-26 06:20 | NUR ---
PT IS RESTING IN BED. PROVIDED ORAL CARE. PT VOICES NO C/O AT THIS TIME. VITAL SIGNS ARE STABLE. BED IS LOW,SIDE RAILSX2,CALL LIGHT WITHIN REACH. WILL CONTINUE TO MONITOR
--- NOTE | 2019-10-26 07:42 | NUR ---
SHIFT REPORT RECEIVED. PT RESTING IN BED. ON ROOM AIR WITH 95% O2 SAT. HAS PIV ON RIGHT FOREARM SALINE LOC. PT STATES HE STILL FEELS WEAK. NO FEVER NOTED. BRUSING NOTE ON RIGHT GROIN AT PREVIOUS CATH SITE. CATHETER IN PLACE WITH CONCENTRATED YELLOW URINE. NO FURTHER NEEDS WILL CONTINUE TO MONITOR.
--- NOTE | 2019-10-26 08:10 | NUR ---
ASSISTED PT UP TO CHAIR. SLIGHT SOB NOTED UPON TRANSFER TO CHAIR. CONTINUE ON ROOM AIR. MEAL TRAY DELIVERED AND SET UP. NO OTHER NEEDS AT THIS TIME. WILL CONTINUE TO MONITOR.
--- NOTE | 2019-10-26 08:48 | NUR ---
BENSON TO TRANSFER TO FLOOR PER DR. BARDALES.
--- NOTE | 2019-10-26 10:14 | NUR ---
PT STATED HE WAS NOT FEELING WELL AND HAVING DIFFICULTY BREATING. PLACED ON 2L OF O2 VIA NC. SOB NOTED. TRANSFERRED BACK TO BED. WILL CONTINUE TO MONITOR.
[2019-10-26 12:39] LABS: BILIRUBIN NEGATIVE (NEGATIVE); GLUCOSE NEGATIVE (NEGATIVE); KETONE NEGATIVE (NEGATIVE); NITRITE NEGATIVE (NEGATIVE); UROBILINOGEN NORMAL (NORMAL)
--- NOTE | 2019-10-26 12:40 | NUR ---
MIJARES CATHETER DC'D PER ORDERS. URINAL PROVIDED. NO FURTHER NEEDS AT THIS TIME.
[2019-10-26 12:43] LABS: RED CELLS - URINE >50 /hpf (0-5)
[2019-10-26 12:44] LABS: BACTERIA MODERATE /hpf (NEGATIVE); EPITHELIAL CELLS 0-5 /hpf (0-5)
--- NOTE | 2019-10-26 13:41 | NUR ---
OT NOTE: PT REPORTED FEELING SICK. STATES THAT HE VOMITTED HIS DINNER LAST NIGHT. REQUESTED TO GO TO BATHROOM. AMB WITH MIN ASSIST; TOILET TRANSFER WITH MIN ASSIST; AMB GREATER THAN 100FT WITH WALKER AND 1 REST BREAK; EDUCATED ON UE/LE EXS. CORA RENE, OTR/L [phone]
--- NOTE | 2019-10-26 17:36 | NUR ---
REPORT CALLED TO MELISSA SHEPHERD TO TRANSFER TO
--- NOTE | 2019-10-26 18:13 | NUR ---
RECIVED FROM CVICU TO ROOM 2118.
--- NOTE | 2019-10-26 19:21 | MORECARE ---
CASE MANAGEMENT DISCHARGE SUMMARY PATIENT: XIN WADE UNIT: [id number] ADM DATE: 10/18/19 AGE: 84 : 35 SEX: M ROOM/BED: D.7569 AUTHOR: LOLA,DOC PHYSICIAN: REFERRING PHYSICIAN: JULIUS BARDALES MD DATE OF SERVICE: 10/26/19 Discharge Plan Patient Name: XIN WADE Facility: [facility]:[place] : 1935 Planned Disposition: Anticipated Discharge Date: Discharge Date: Expected LOS: Initial Reviewer: [email or web address] Initial Review Date: 10/18/2019 Generated: 10/26/19 8:21 pm Comments DCP- Discharge Planning Updated by [id number]: Lo Chanel on 10/26/19 6:[address] FAXED UPDATED CLINICAL TO [facility] DCP- Discharge Planning Updated by [id number]: Lo Chanel on 10/22/19 3:[address] CM faxed updates to [facility] and then called [facility] to ask if patient gets discharge orders if they can take him back today. She stated "Yes" that it would be after 4 pm before they could pick him up. CM notified nursing staff. CM spoke with Dr. Hill and he stated that the patient needed to have BM before he is discharged. CM called Ewing with [facility] and she stated that patient can be admitted back to [facility] over weekend to just call facility and fax update records and discharge to [phone]. CM will continue to follow and assist as needed with discharge planning / needs. DCP- Discharge Planning Updated by [id number]: Lo Chanel on 10/18/19 6:[address] Patient Name: XIN WADE Admission Status: ER Accout number: [id number] Admission Date: 10-18-2019 : 1935 Admission Diagnosis: Attending: JULIUS BARDALES Current LOS: 1 Anticipated DC Date: Planned Disposition: Primary Insurance: [employer] Discharge Planning Comments: CM met with patient to complete initial dc planning assessment. CM educated patient on the CM role and verbal consent given by patient to complete assessment. CM verified patient's address, phone number, and emergency contact phone numbers. Patient is a resident [facility]. At discharge patient plans to return to the [facility] and feels this is a safe discharge. YING form signed by patient for return to The [facility]. Signed form placed in chart and signed form given to patient. Patient denied further known discharge needs at this time. . Transportation provider at discharge will be [facility] . CM will continue to follow and will assist as needed with dc plans/needs. Center Consultant: Lo Chanel DCPIA - Discharge Planning Initial Assessment Updated by [id number]: Lo Chanel on 10/18/19 7:22 pm * Is the patient Alert and Oriented? Yes * How many steps to enter\\exit or inside your home? * PCP [facility] * Pharmacy [facility] * Preadmission Environment Biology Department Chair Custodial * Facility Name [facility] * ADLs Partial Dependent * Partial ADLs (Assistance needed) Ambulation Bathing Dressing Eating Medication Management Toileting Transfers * List name and contact numbers for known caregivers / representatives who currently or will assist patient after discharge: Jania Parson - [phone] * Verbal permission to speak to the caregivers and representatives has been obtained from the patient. Yes * Community resources currently utilized None * Additional services required to return to the preadmission environment? No * Can the patient safely return to the preadmission environment? Yes * Has this patient been hospitalized within the prior 30 days at any hospital? No Coverage Notice Reviewer: [id number] Thang Chanel Notice Issued Date-Time: 10/21/2019 19:27 Notice Type: Patient Choice Letter Notice Delivered To: Patient Relationship to Patient: Self Awake Overnight Monitor Name: Delivery Method: HAND - Hand Delivered Mariangel Days: Prior Verbal Notification: Recipient Understood Notice: Yes Recipient Signature: Yes Med Rec Note Co-signed by Attending: Coverage Notice Comment: [facility] Reviewer: [id number] Thang Chanel Notice Issued Date-Time: 10/22/2019 18:47 Notice Type: IM Discharge Notice Notice Delivered To: Patient Relationship to Patient: Self Awake Overnight Monitor Name: Delivery Method: HAND - Hand Delivered Mariangel Days: Prior Verbal Notification: Recipient Understood Notice: Yes Recipient Signature: Yes Med Rec Note Co-signed by Attending: Coverage Notice Comment: Last DP export: 10/22/19 3:33 p Patient Name: XIN WADE Page [id number] at 192 All edits/amendments must be made on the electronic document DICTATION DATE: 10/26/191920 WASH DRILLER: TESFAYE 10/26/191920 RPT#: [id number] DC DATE: STATUS: ADM IN [facility] [address] [place] [address] END OF REPORT
--- NOTE | 2019-10-26 19:39 | NUR ---
RECEIVED BEDSIDE REPORT. PATIENT IS ALERT AND ORIENTED, RESTING COMFORTABLY IN BED. RESPIRATIONS ARE EVEN AND UNLABORED. NO S/S OF DISTRESS. NO C/O PAIN. CALL LIGHT WITHIN REACH. WILL CPOC.
--- NOTE | 2019-10-26 23:53 | NUR ---
PATIENT RESTING COMFORTABLY IN BED. RESPIRATIONS ARE EVEN AND UNLABORED. NO S/S OF DISTRESS. CALL LIGHT WITHIN REACH. WILL CPOC.
[2019-10-27 01:51] VITALS: BP 121/64
[2019-10-27 05:41] LABS: BASOPHILS 0.1 % (0-2); HEMATOCRIT 29.1 % (42.0-54.0); HEMOGLOBIN 8.9 g/dL (13.5-17.5); IMMATURE GRANULOCYTES 0.4 % (0-5); LYMPHOCYTES 10.9 % (15-50); MCH 28.7 pg (26.0-34.0); MCHC 30.6 g/dL (31.0-37.0); MCV 93.9 fL (80.0-100.0); MEAN PLATELET VOLUME 10.3 fL (7.4-10.4); MONOCYTES 11.8 % (2-11); NEUTROPHILS 75.8 % (40-80); PLATELET COUNT 289 10x3/uL (130-400); RDW 15.4 % (11.5-14.5); WBC 13.4 10x3/uL (4.8-10.8)
[2019-10-27 06:06] LABS: ANION GAP 9.2 mmol/L (8-16); BILIRUBIN - TOTAL 0.4 mg/dL (0.2-1.3); CARBON DIOXIDE 28.3 mmol/L (21.0-32.0); CREATININE - SERUM 1.2 mg/dL (0.6-1.3); POTASSIUM - SERUM 4.5 mmol/L (3.5-5.1)
[2019-10-27 06:34] VITALS: BP 124/74
--- NOTE | 2019-10-27 08:30 | NUR ---
PT C/O NOT BEING ABLE TO FULLY CATCH HIS BREATH. HE STATES "I FEEL LIKE IM ON A HILL THAT I CANT QUITE GET OVER" RR SLIGHTLY LABORED WITH NC @2L IN PLACE BUT PULSE OX 98% PT DID HAVE A 3.1 SEC PAUSE ON HIS TELEMETRY MONITERING AND IS GOING FROM ATRIAL FLUTTER TO A.FIB, I NOTIFIED ZACH LEZAMA APN FOR CARDIOLOGY AND NO NEW ORDERS OBTAINED. WILL AWAIT FURTHER ORDERS. PT CURRENTLY RESTING QUIETLY IN BED. NO NEEDS. WILL CTM.
[2019-10-27 08:33] VITALS: BP 125/89
--- NOTE | 2019-10-27 10:29 | NUR ---
PT STATES HE DOES NOT WANT MAG CITRATE. HE JUST TOOK MIRALAX WITH HIS MORNING MEDICATIONS. ABD SOFT AND NONDISTENDED. BOWEL SOUNDS ACTIVE X4. PT STATES "I THINK I CAN GO IN A LITTLE BIT BUT I DONT WANT YOU PEOPLE JUST PUMPING ME WITH STUFF, IT TAKES TIME" WILL LET PT REST HE DOESNT APPEAR CONSTIPATED AND THEN GIVE IF HE WANTS LATER AND IS UNABLE TO GO. PT REFUSED THERAPY THIS AM AND STATES HE WILL WALK LATER THIS AFTERNOON. PT IS JUST VERY TIRED AND STATES ITS HARD TO CATCH HIS BREATH. RR ARE SLIGHTLY LABORED WHEN RESTING WITH NC @2L IN PLACE. PULSE OX 98% LUNGS ARE CTA IN THE UPPER LOBES BILAT, THE LOWER LOBES ARE SLIGHTLY DIMINISHED. PTS HEART RHYTHM IS IRREGULAR AND HIS HEART HISTORY CAN DEFINITELY BE CONTRIBUTED TO HIS SOB. WHITNEY DISCUSSED THIS WITH CARDIOLOGY AND WILL AWAIT FURTHER RECCOMENDATIONS.
--- NOTE | 2019-10-27 11:33 | NUR ---
PT NEEDING TO USE BR. ASSISTED PT TO BR X1 ASSIST HE IS STEADY JUST MAYBE REQUIRES STANDBY. PT WAS NOT ABLE TO HAVE A BM BUT PASSED GAS AND STILL DENIES NEED FOR FURTHER LAXATIVE INTERVENTION AT THIS TIME. PT BACK IN BED AND SITTING UP RESTING QUIETLY. CL IN REACH, BED IN LOWEST, SIDE RAILS X2. WILL CTM.
[2019-10-27 11:37] VITALS: BP 128/69
--- NOTE | 2019-10-27 13:40 | NUR ---
PT STILL HAVING OCCASIONAL PAUSES. PAGED TO MAKE SURE HE WAS AWARE. HE STATES WE WILL CONTINUE TO MONITER IT AND CONTINUE HOLDING THE METOPROLOL AND AMIODARONE.
--- NOTE | 2019-10-27 13:59 | NUR ---
PT AMBULATED WITH THERAPY AND STATES HE IS BREATHING EASIER HE FEELS LIKE. PT DENIES ANY CURRENT PAIN OR NEEDS AT THIS TIME. WILL CTM.
--- NOTE | 2019-10-27 14:28 | NUR ---
Nutrition Follow-up: Per nurse note, pt refused Mag Citrate this AM; passing flatus. Noted I/Os (-1050 cc on 10/26). ~75% of breakfast eaten this AM. Diet: Cardiac, Ensure TID Wt: 187.4# (10/27); 218# (10/25); 186.2# (10/19) Last BM: 10/23 per chart Labs noted: Glu 112, Ca 8.0, Alb 2.0 Meds noted: Miralax, Protonix, Remeron -Monitor wt; noted daily wts ordered. -Encourage PO intake. -RD following.
[2019-10-27 15:39] VITALS: BP 114/55
--- NOTE | 2019-10-27 15:47 | NUR ---
OT NOTE: ATTEMPTED OT IN PM.. PT REQUESTED TO HOLD HE WAS NOT FEELING WELL. CORA RENE, OTR/L
--- NOTE | 2019-10-27 17:29 | NUR ---
ASSISTED PT UP IN BED TO EAT HIS DINNER. PT STATES HIS BREATHING IS A LITTLE BETTER OVERALL BUT STATES HE STILL DOESNT FEEL LIKE HIS NORMAL BREATHING. PT NOW EATING. NO CURRENT NEEDS. WILL CTM.
--- NOTE | 2019-10-27 18:10 | NUR ---
PT FINISHED EATING AND READY TO LAY BACK FOR THE NIGHT. REPOSITIONED PT IN BED FOR COMFORT. PT VOIDED 100CC DARK YELLOW URINE IN URINAL. PT NOW RESTING QUIETLY. DENIES ANY CURRENT NEEDS. WILL CTM.
--- NOTE | 2019-10-27 19:40 | NUR ---
RECEIVED BEDSIDE REPORT. PATIENT IS ALERT AND ORIENTED, RESTING COMFORTABLY IN BED. REPIRATIONS ARE EVEN AND UNALBORED. NO S/S OF DISTRESS. NO C/O PAIN. NEEDS MET. CALL LIGHT WITHIN REACH. ILL CPOC.
[2019-10-27 20:00] VITALS: BP 111/69
[2019-10-28] VITALS: BP 110/59
[2019-10-28 04:00] VITALS: BP 156/69
[2019-10-28 06:36] LABS: BASOPHILS 0.3 % (0-2); EOSINOPHILS 4.2 % (0-7); HEMOGLOBIN 9.3 g/dL (13.5-17.5); IMMATURE GRANULOCYTES 0.3 % (0-5); LYMPHOCYTES 20.7 % (15-50); MCH 28.4 pg (26.0-34.0); MCV 94.8 fL (80.0-100.0); MEAN PLATELET VOLUME 10.3 fL (7.4-10.4); MONOCYTES 12.1 % (2-11); NEUTROPHILS 62.4 % (40-80); PLATELET COUNT 327 10x3/uL (130-400); RBC 3.27 10x6/uL (4.20-6.10); RDW 15.4 % (11.5-14.5)
[2019-10-28 06:37] LABS: WBC 9.7 10x3/uL (4.8-10.8)
[2019-10-28 07:00] LABS: ALBUMIN 2.1 g/dL (3.4-5.0); ANION GAP 11.3 mmol/L (8-16); BILIRUBIN - TOTAL 0.33 mg/dL (0.2-1.3); CALCIUM 8.6 mg/dL (8.5-10.1); CARBON DIOXIDE 28.2 mmol/L (21.0-32.0); CREATININE - SERUM 1.3 mg/dL (0.6-1.3); POTASSIUM - SERUM 4.5 mmol/L (3.5-5.1); PROTEIN - SERUM 5.9 g/dL (6.4-8.2)
--- NOTE | 2019-10-28 07:10 | NUR ---
REPORT RECEIVED FROM APPRENTICE ELECTRICIAN AND PATIENT CARE ASSUMED. PATIENT LAYING IN BED ON BACK WITH EYES CLOSED AND BREATHING EVENLY. WILL CONTINUE TO MONITOR SR UP X 2 BED IN LOW POSITION AND CALL LIGHT IN REACH,
--- NOTE | 2019-10-28 10:20 | NUR ---
PATIENT UP AMBULATING WITH PT. PATIENT WITH STEADY GAIT AND TOLERATING WELL. WILL CONTINUE TO MONITOR.
[2019-10-28 10:59] VITALS: BP 113/63
[2019-10-28 13:52] VITALS: BP 105/76
--- NOTE | 2019-10-28 14:55 | MORECARE ---
CASE MANAGEMENT DISCHARGE SUMMARY PATIENT: XIN WADE UNIT: [id number] ADM DATE: 10/18/19 AGE: 84 : 35 SEX: M ROOM/BED: D.3386 AUTHOR: LOLA,DOC PHYSICIAN: REFERRING PHYSICIAN: JULIUS BARDALES MD DATE OF SERVICE: 10/28/19 Discharge Plan Patient Name: XIN WADE Facility: [facility]:[place] : 1935 Planned Disposition: Anticipated Discharge Date: Discharge Date: Expected LOS: Initial Reviewer: [id number] Initial Review Date: 10/18/2019 Generated: 10/28/19 3:55 pm Comments DCP- Discharge Planning Updated by [id number]: Cielo Leo on 10/28/19 1:[address] Patient Name: XIN WADE Admission Status: ER Accout number: [id number] Admission Date: 10-18-2019 : 1935 Admission Diagnosis: Attending: JULIUS BARDALES Current LOS: 10 Anticipated DC Date: Planned Disposition: Primary Insurance: [facility] Discharge Planning Comments: PATIENT TO DC BACK TO THE [facility] WHERE HE IS IN A TRAVEL REGISTERED NURSE NICU BED. VAN IS TO PICK HIM UP AT APPROX 1600 TODAY. PATIENT REFUSED TO SIGN IMM. RN TO CALL REPORT. JOSE SPOKE WITH LETICIA, THE [facility]ASON FOR THE [facility]. CM TO FOLLOW AND ASSIST NEEDED. Fiberglass Pipe Covering Supervisor: Cielo Leo DCP- Discharge Planning Updated by [id number]: Lo Chanel on 10/26/19 6:[address] FAXED UPDATED CLINICAL TO LETICIA AT THE [facility] DCP- Discharge Planning Updated by [id number]: Lo Chanel on 10/22/19 3:[address] CM faxed updates to [facility] and then called Leticia to ask if patient gets discharge orders if they can take him back today. She stated "Yes" that it would be after 4 pm before they could pick him up. CM notified nursing staff. JOSE spoke with Dr. Hill and he stated that the patient needed to have BM before he is discharged. JOSE called Leticia with The [facility] and she stated that patient can be admitted back to The [facility] over weekend to just call facility and fax update records and discharge to [phone]. CM will continue to follow and assist as needed with discharge planning / needs. DCP- Discharge Planning Updated by [id number]: Lo Chanel on 10/18/19 6:[address] Patient Name: XIN WADE Admission Status: ER Accout number: [id number] Admission Date: 10-18-2019 : 1935 Admission Diagnosis: Attending: JULIUS BARDALES Current LOS: 1 Anticipated DC Date: Planned Disposition: Primary Insurance: [facility] Discharge Planning Comments: CM met with patient to complete initial dc planning assessment. CM educated patient on the CM role and verbal consent given by patient to complete assessment. CM verified patient's address, phone number, and emergency contact phone numbers. Patient is a resident [facility]. At discharge patient plans to return to the [facility] and feels this is a safe discharge. YING form signed by patient for return to [facility]. Signed form placed in chart and signed form given to patient. Patient denied further known discharge needs at this time. . Transportation provider at discharge will be The [facility] . CM will continue to follow and will assist as needed with dc plans/needs. Fiberglass Pipe Covering Supervisor: Lo Chanel DCPIA - Discharge Planning Initial Assessment Updated by [id number]: Lo Chanel on 10/18/19 7:22 pm * Is the patient Alert and Oriented? Yes * How many steps to enter\\exit or inside your home? * PCP [facility] * Pharmacy [facility] * Preadmission Environment Longterm [facility] * Facility Name [facility] * ADLs Partial Dependent * Partial ADLs (Assistance needed) Ambulation Bathing Dressing Eating Medication Management Toileting Transfers * List name and contact numbers for known caregivers / representatives who currently or will assist patient after discharge: Jania Parson - [phone] * Verbal permission to speak to the caregivers and representatives has been obtained from the patient. Yes * Community resources currently utilized None * Additional services required to return to the preadmission environment? No * Can the patient safely return to the preadmission environment? Yes * Has this patient been hospitalized within the prior 30 days at any hospital? No Coverage Notice Reviewer: [id number] - Lo Chanel Notice Issued Date-Time: 10/21/2019 19:27 Notice Type: Patient Choice Letter Notice Delivered To: Patient Relationship to Patient: Self Chicle Grinder Feeder Name: Delivery Method: HAND - Hand Delivered Mariangel Days: Prior Verbal Notification: Recipient Understood Notice: Yes Recipient Signature: Yes Med Rec Note Co-signed by Attending: Coverage Notice Comment: DUSTIN BRYANT Reviewer: [id number] Thang Chanel Notice Issued Date-Time: 10/22/2019 18:47 Notice Type: IM Discharge Notice Notice Delivered To: Patient Relationship to Patient: Self Chicle Grinder Feeder Name: Delivery Method: HAND - Hand Delivered Mariangel Days: Prior Verbal Notification: Recipient Understood Notice: Yes Recipient Signature: Yes Med Rec Note Co-signed by Attending: Coverage Notice Comment: Reviewer: [id number] - Cielo Leo Notice Issued Date-Time: 10/28/2019 14:48 Notice Type: IM Discharge Notice Notice Delivered To: Patient Relationship to Patient: Chicle Grinder Feeder Name: Delivery Method: HAND - Hand Delivered Mariangel Days: Prior Verbal Notification: Recipient Understood Notice: Recipient Signature: Med Rec Note Co-signed by Attending: Coverage Notice Comment: REFUSED TO SIGN Last DP export: 10/26/19 6:21 p Patient Name: XIN WADE Page 75726 at 1455 All edits/amendments must be made on the electronic document DICTATION DATE: 10/28/19 145 VENEER SHEET REPAIRER: TESFAYE 10/28/19 1455 RPT#: [id number] DC DATE: STATUS: ADM IN [facility] [address] [place] [address] END OF REPORT
--- NOTE | 2019-10-28 16:08 | NUR ---
ORDERS RECEIVED FOR DC. WRITTEN AND VERBAL INSTRUCTIONS GIVEN TO PATIENT. PATIENT VERBALIZED UNDERSTANDING AND SIGNED PAPERWORK. IV DCD WITHOUT DIFFICULTY WITH ENTIRE CATHETER INTACT. AWAINTING [facility] VAN TO EAR MACHINE OPERATOR PT. PATIENT IS STABLE AND VSS. PATIENT DENIES ANY NEEDS OR PAIN. WILL CONTINUE WITH PLAN OF CARE. SR UP X 2 BED IN LOW POSITION AND CALL LIGHT IN REACH.
--- NOTE | 2019-10-28 17:15 | NUR ---
PER WILVER RN [facility] DCD HAS BEEN CANCELLED DUE TO BOK NEEDED FOR BIPOLAR. INFORMED PATIENT . PATIENT VERBALIZED UNDERSTANDING. PATIENT BACK TO BED . TELEMETRY REAPPLIED. PATIENT IS STABLE AND VSS. PATIENT DENIED ANY NEEDS OR PAIN. WILL CONTINUE TO MONITOR. SR UP X 2 BED IN LOW POSITION AND CALL LIGHT IN REACH.
--- NOTE | 2019-10-28 19:40 | NUR ---
RECEIVED BEDSIDE REPORT. PATIENT IS ALERT AND ORIENTED, RESTING COMFORTABLY IN BED. RESPIRATIONS ARE EVEN AND UNLABORED. NO S/S OF DISTRESS. NO C/O PAIN. NEEDS MET. CALL LIGHT WITHIN REACH. WILL CPOC.
[2019-10-28 20:00] VITALS: BP 123/76
[2019-10-29] VITALS: BP 124/65
--- NOTE | 2019-10-29 01:53 | NUR ---
PATIENT RESTING COMFORTABLY IN BED. RESPIRATIONS ARE EVEN AND UNLABORED. NO S/S OF DISTRESS. NO C/O PAIN. CALL LIGHT WITHIN REACH. WILL CPOC.
[2019-10-29 04:00] VITALS: BP 128/62
--- NOTE | 2019-10-29 07:15 | NUR ---
REPORT RECEIVED FROM MILLING MACHINE SET UP OPERATOR AND PATIENT CARE ASSUMED. PATIENT LAYING IN BED ON BACK AWAE, ALERT AND ORIENTED X 4. PATIENT IS STABLE AND VSS. PATIENT DENIES ANY NEEDS OR PAIN. WILL CONTINUE WITH PLAN OF CARE. SR UPX 2 BED IN LOW POSITION AND CALL LIGHT IN REACH.
[2019-10-29 09:26] VITALS: BP 138/79
--- NOTE | 2019-10-29 10:51 | NUR ---
GAVE PATIENT ROUTINE MORNING MEDS. REPOSITIONED PATIENT FOR COMFORT. WILL CONTINUE TO MONITOR. SR UP X 2 BED IN LOW POSITION AND CALL LIGHT IN REACH.
--- NOTE | 2019-10-29 18:19 | MORECARE ---
CASE MANAGEMENT DISCHARGE SUMMARY PATIENT: XIN WADE UNIT: [id number] ADM DATE: 10/18/19 AGE: 84 : 35 SEX: M ROOM/BED: D.4957 AUTHOR: LOLA,DOC PHYSICIAN: REFERRING PHYSICIAN: JULIUS BARDALES MD DATE OF SERVICE: 10/29/19 Discharge Plan Patient Name: XIN WADE Facility: [facility]:[place] : 1935 Planned Disposition: Anticipated Discharge Date: Discharge Date: 10/29/2019 Expected LOS: Initial Reviewer: [id number] Initial Review Date: 10/18/2019 Generated: 10/29/19 7:18 pm Comments DCP- Discharge Planning Updated by [id number]: Cielo Leo on 10/28/19 1:[address] Patient Name: XIN WADE Admission Status: ER Accout number: [id number] Admission Date: 10-18-2019 : 1935 Admission Diagnosis: Attending: JULIUS BARDALES Current LOS: 10 Anticipated DC Date: Planned Disposition: [facility] Discharge Planning Comments: PATIENT TO DC BACK TO THE [facility] WHERE HE IS IN A SNF BED. VAN IS TO PICK HIM UP AT APPROX 1600 TODAY. PATIENT REFUSED TO SIGN IMM. RN TO CALL REPORT. JOSE SPOKE WITH LETICIA, THE [facility] FOR THE [facility]. CM TO FOLLOW AND ASSIST NEEDED. Adzing And Boring Machine Operator: Cielo Leo DCP- Discharge Planning Updated by [id number]: Lo Chanel on 10/26/19 6:[address] FAXED UPDATED CLINICAL TO LETICIA AT [facility] DCP- Discharge Planning Updated by [id number]: Lo Chanel on 10/22/19 3:[address] CM faxed updates to The [facility] and then called Leticia to ask if patient gets discharge orders if they can take him back today. She stated "Yes" that it would be after 4 pm before they could pick him up. JOSE notified nursing staff. JOSE spoke with Dr. Hill and he stated that the patient needed to have BM before he is discharged. JOSE called Leticia with The [facility] and she stated that patient can be admitted back to The [facility] over weekend to just call facility and fax update records and discharge to [phone]. CM will continue to follow and assist as needed with discharge planning / needs. DCP- Discharge Planning Updated by [id number]: Lo Chanel on 10/18/19 6:[address] Patient Name: XIN WADE Admission Status: ER Accout number: [id number] Admission Date: 10-18-2019 : 1935 Admission Diagnosis: Attending: JULIUS BARDALES Current LOS: 1 Anticipated DC Date: Planned Disposition: Primary Insurance: [facility] Discharge Planning Comments: CM met with patient to complete initial dc planning assessment. CM educated patient on the CM role and verbal consent given by patient to complete assessment. CM verified patient's address, phone number, and emergency contact phone numbers. Patient is a resident [facility]. At discharge patient plans to return to the [facility] and feels this is a safe discharge. YING form signed by patient for return to The [facility]. Signed form placed in chart and signed form given to patient. Patient denied further known discharge needs at this time. . Transportation provider at discharge will be The [facility] . CM will continue to follow and will assist as needed with dc plans/needs. Adzing And Boring Machine Operator: Lo Chanel DCPIA - Discharge Planning Initial Assessment Updated by [id number]: Lo Chanel on 10/18/19 7:22 pm * Is the patient Alert and Oriented? Yes * How many steps to enter\\exit or inside your home? * PCP [facility] * Pharmacy [facility] * Preadmission Environment Silk Screen Painter Longterm * Facility Name [facility] * ADLs Partial Dependent * Partial ADLs (Assistance needed) Ambulation Bathing Dressing Eating Medication Management Toileting Transfers * List name and contact numbers for known caregivers / representatives who currently or will assist patient after discharge: Jania Parson - [phone] * Verbal permission to speak to the caregivers and representatives has been obtained from the patient. Yes * Community resources currently utilized None * Additional services required to return to the preadmission environment? No * Can the patient safely return to the preadmission environment? Yes * Has this patient been hospitalized within the prior 30 days at any hospital? No Coverage Notice Reviewer: [id number] - Lo Chanel Notice Issued Date-Time: 10/21/2019 19:27 Notice Type: Patient Choice Letter Notice Delivered To: Patient Relationship to Patient: Self Cylinder Die Machine Operator Name: Delivery Method: HAND - Hand Delivered Mariangel Days: Prior Verbal Notification: Recipient Understood Notice: Yes Recipient Signature: Yes Med Rec Note Co-signed by Attending: Coverage Notice Comment: DUSTIN BRYANT Reviewer: [id number] Thang Chanel Notice Issued Date-Time: 10/22/2019 18:47 Notice Type: IM Discharge Notice Notice Delivered To: Patient Relationship to Patient: Self Cylinder Die Machine Operator Name: Delivery Method: HAND - Hand Delivered Mariangel Days: Prior Verbal Notification: Recipient Understood Notice: Yes Recipient Signature: Yes Med Rec Note Co-signed by Attending: Coverage Notice Comment: Reviewer: [id number] - Cielo Leo Notice Issued Date-Time: 10/28/2019 14:48 Notice Type: IM Discharge Notice Notice Delivered To: Patient Relationship to Patient: Cylinder Die Machine Operator Name: Delivery Method: HAND - Hand Delivered Mariangel Days: Prior Verbal Notification: Recipient Understood Notice: Recipient Signature: Med Rec Note Co-signed by Attending: Coverage Notice Comment: REFUSED TO SIGN Last DP export: 10/28/19 1:55 p Patient Name: XIN WADE Page 16111 at 1819 All edits/amendments must be made on the electronic document DICTATION DATE: 10/29/191817 CASINO SUPERVISOR: TESFAYE 10/29/191817 RPT#: [id number] DC DATE:10/29/19 STATUS: DIS IN [place] [address] [place] [address] END OF REPORT
== END 2019-10-29 16:02 | disposition home or self-care (01) | DRG 250 ==
LOC: D.ER 00:42 → D.M2 01:53 → OBSVTIME 01:53 → D.M2 04:03 → D.CVICU 04:03 → D.ICU 04:03 → D.CVICU 17:05 → D.M2 10-26 17:37
PROVIDERS: Emergency Medicine; Family Medicine; Internal Medicine Cardiovascular Disease; ADMIT Internal Medicine Nephrology; ATTEND Internal Medicine Nephrology
PROC: B2151ZZ Fluoroscopy of Left Heart using Low Osmolar Contrast (ICD-10-PCS; 2019-10-19)
PROC: 4A023N7 Measurement of Cardiac Sampling and Pressure, Left Heart, Percutaneous Approach (ICD-10-PCS; 2019-10-19)
PROC: 02713ZZ Dilation of Coronary Artery, Two Arteries, Percutaneous Approach (ICD-10-PCS; principal; 2019-10-19 14:00)
PROC: B2111ZZ Fluoroscopy of Multiple Coronary Arteries using Low Osmolar Contrast (ICD-10-PCS; 2019-10-19 14:00)
DX: I25.110 Atherosclerotic heart disease of native coronary artery with unstable angina pectoris (principal); I50.23 Acute on chronic systolic (congestive) heart failure; I48.20 Chronic atrial fibrillation, unspecified; N17.9 Acute kidney failure, unspecified; N39.0 Urinary tract infection, site not specified; E44.0 Moderate protein-calorie malnutrition; I95.9 Hypotension, unspecified; E78.5 Hyperlipidemia, unspecified; Z79.01 Long term (current) use of anticoagulants; I11.0 Hypertensive heart disease with heart failure; J44.9 Chronic obstructive pulmonary disease, unspecified; M19.90 Unspecified osteoarthritis, unspecified site; F31.9 Bipolar disorder, unspecified; D64.9 Anemia, unspecified; E87.5 Hyperkalemia

== ENCOUNTER → 2019-11-01 09:14 | Outpatient (CLI) | payer MEDICARE ==
[2019-10-18 14:21] VITALS: BMI 25.1
[~2019-11-01 09:14] MED LIST changes: +CALCIUM 500 +1 EAC3 PO; +CLARITIN 10 MG10 MG PO; +NEURONTIN 300300 MG PO; +TOPROL XL25 MG PO
== END | disposition home or self-care (01) ==
LOC: D.HCCECHO 09:14
PROVIDERS: ATTEND Internal Medicine Cardiovascular Disease
DX: I25.10 Atherosclerotic heart disease of native coronary artery without angina pectoris (principal)

== ENCOUNTER 2021-02-07 06:29 | Emergency (ER) | payer MEDICARE, MEDICAID ==
[~2021-02-07] VITALS: Ht 175.3 cm; Wt 100.0 kg
[~2021-02-07 06:29] MED LIST changes: +ACETAMINOPHEN325 MG PO; +CALCIUM 600 +1 EAC3 PO; +IMODIUM2 MG PO; +MIRALAX17 GM PO; +MUCINEX600 MG PO; +NITROSTAT0.4 MG SL; +REMERON30 MG PO; +SENNA LAXATIVE8.6 MG PO; +ULTRAM50 MG PO; +VIC-FORTE CAPSUL1 MG PO; +VITAMIN B-12500 MCG PO; +VITAMIN D50000 UNI1 PO; +ZOFRAN4 MG PO; +ZOLOFT50 MG PO; +ZYLOPRIM100 MG PO
[2021-02-07 06:52] VITALS: Ht 175.3 cm; Wt 100.0 kg
[2021-02-07 07:35] VITALS: BP 157/88
== END 2021-02-07 10:30 | disposition home or self-care (01) ==
LOC: D.ER 06:29
DX: S16.1XXA Strain of muscle, fascia and tendon at neck level, initial encounter (principal); S09.90XA Unspecified injury of head, initial encounter; S76.812A Strain of other specified muscles, fascia and tendons at thigh level, left thigh, initial encounter; W19.XXXA Unspecified fall, initial encounter; Y93.9 Activity, unspecified; Y92.9 Unspecified place or not applicable; E78.5 Hyperlipidemia, unspecified; J44.9 Chronic obstructive pulmonary disease, unspecified; I11.0 Hypertensive heart disease with heart failure; I50.9 Heart failure, unspecified